=== PATIENT | female | born 1940 | race Caucasian/White ===

== ENCOUNTER → 2018-03-16 13:53 | Outpatient (CLI) | payer MEDICARE, OTHER, SELFPAY ==
--- NOTE | 2018-03-16 | DI.MG.S_ITS ---
BILATERAL DIGITAL SCREENING MAMMOGRAM 3D/2D WITH CAD: 03/16/2018 CLINICAL: Routine screening. Comparison is made to exams dated: 03/01/2016 mammogram and 02/24/2015 mammogram - [facility]. The tissue of both breasts is heterogeneously dense. This may lower the sensitivity of mammography. Current study was also evaluated with a Computer Aided Detection (CAD) system. No significant masses, calcifications, or other findings are seen in either breast. There has been no significant interval change. IMPRESSION: NEGATIVE There is no mammographic evidence of malignancy. A 1 year screening mammogram is recommended. This exam was interpreted at Station ID: [id number]. NOTE: For mammograms, a report in lay terms will be sent to the patient. Approximately 15% of breast malignancies will not be visualized mammographically. In the management of a palpable breast mass, a negative mammogram must not discourage biopsy of a clinically suspicious lesion. Electronically Signed By: Kaushal fischer/kwesi:03/16/2018 15:33:30 letter sent: Normal Exam ACR BI-RADS Category 1: Negative [id number]
== END ==
PROVIDERS: Family Provider Family Medicine; PCP Family Medicine; Visit Provider Family Medicine
DX: Z12.31 Encounter for screening mammogram for malignant neoplasm of breast (principal)
CPT/HCPCS: 77063; 77067

== ENCOUNTER 2019-05-16 13:20 | Emergency (ER) | payer MEDICARE, OTHER, SELFPAY ==
[2019-05-16 13:27] VITALS: BP 148/82; PULSE 80; RESP 16; TEMP 36.4; O2SAT 100; BMI 14.5
--- NOTE | 2019-05-16 13:38 | DI.RAD.S_ITS ---
PROCEDURE: XR HIP W PEL IF DONE LT 2V INDICATIONS: hip/groin pain with walking, osteoporosis TECHNIQUE: AP pelvis with lateral view(s) of the left hip. COMPARISON: None. FINDINGS: Bones: No fractures or dislocations. Pelvic ring appears intact. No suspicious bony lesions. Soft tissues: The visualized bowel gas pattern is normal. No suspicious soft tissue calcifications. IMPRESSION: No fracture found, no sign of subluxation. Moderate colonic constipation. Dictated by: Shahab Whiteside M.D. on 05/16/2019 at 14:12 Approved by: Shahab Whiteside M.D. on 05/16/2019 at 14:12
--- NOTE | 2019-05-16 13:44 | ED.BACK ---
HPI - Back Pain/Injury <Sonya FloresNUSRAT - Last Filed: 05/16/19 18:49> General Chief Complaint: Back Pain/Injury Stated Complaint: SEVERE PAIN IN HIPS AND LEGS Time Seen by Provider: 05/16/19 13:23 Source: patient Mode of arrival: ambulatory Limitations: no limitations History of Present Illness HPI Narrative: 79-year-old male with history of TIA, brain aneurysms, carotid dissection, presents emergency department today complaining of a gradual onset of left buttocks pain that radiates down her left leg. She describes it as a constant dull ache which is a 5/10 with intermittent episodes of sharp shooting pain 7/10. She states the pain is worse when she moves, sits, or transitions positions. She has not tried any medication for the pain as she states ?do not like to take medications ?. Denies any back or hip injuries. She denies fevers, chest pain, shortness of breath, rashes, severe headache, vision changes, abdominal pain, nausea, vomiting, or diarrhea. Patient states that she is underweight (states she weighs about 70 lb) because he has been unable to keep weight on herself since her brain aneurysms. She states that she continually snacks in eats. Her is at the bedside and confirms this. She also states she is unable to change a gown because she is allergic to polyester. Patient describes that she uses a pendulum given to her by natural to determine if she can take medications or if she has allergies to medications. Related Data Home Medications Medication Instructions Recorded Confirmed Priority Eye Vitamin 1 tab PO DAILY 05/16/19 05/16/19 aspirin 81 mg PO DAILY 05/16/19 05/16/19 hydroxyzine HCl 12.5 mg PO BID 05/16/19 05/16/19 Previous Rx's Medication Instructions Recorded lamotrigine 25 mg tablet 25 mg PO DAILY #30 tab 05/03/19 Allergies Allergy/AdvReac Type Severity Reaction Status Date / Time lamotrigine Allergy Severe SIEZURES Verified 05/16/19 13:27 aspirin [ASPIRIN] Allergy Mild ONLY Verified 05/16/19 13:27 REGULAR STRENGTH ASA divalproex sodium Allergy Mild Verified 05/16/19 13:27 [From DEPAKOTE] gabapentin [GABAPENTIN] Allergy Mild Verified 05/16/19 13:27 levetiracetam [From KEPPRA] Allergy Mild Verified 05/16/19 13:27 penicillin G [PENICILLIN G] Allergy Mild Verified 05/16/19 13:27 phenytoin [PHENYTOIN] Allergy Mild Verified 05/16/19 13:27 Sulfa (Sulfonamide Allergy Mild Verified 05/16/19 13:27 Antibiotics) [SULFA (SULFONAMIDE ANTIBIOTICS)] topiramate [TOPIRAMATE] Allergy Mild Verified 05/16/19 13:27 cat dander [CAT DANDER] Allergy Unknown ITCHY, Verified 05/16/19 13:27 THROAT SWELLS naltrexone Allergy Unknown Verified 05/16/19 14:24 primidone [PRIMIDONE] Allergy Unknown REPORTS Verified 05/16/19 13:27 SHE IS ALLERGIC, VERY DIZZY hydroxyzine AdvReac Intermediate Itching Verified 05/16/19 13:27 PARTICULAR WATER Allergy Mild tolerates Uncoded 05/16/19 13:27 only distilled water POLYSTER Allergy Mild FEELS PAIN Uncoded 05/16/19 13:27 WHEN SKIN TOUCHES Review of Systems <NUSRAT Asencio - Last Filed: 05/16/19 18:49> Review of Systems REVIEW OF SYSTEMS: GENERAL: Denies fever or chills. HENT: No head trauma. EYES: No double vision or vision loss. CARDIOVASCULAR: No chest pain or syncope. RESPIRATORY: No shortness of breath or cough. GASTROINTESTINAL: No nausea, vomiting, diarrhea, or constipation. GENITOURINARY: No flank pain or dysuria. MUSCULOSKELETAL: Complains of left hip and back pain, see HPI. INTEGUMENTARY: No rash, lesions, or pruritus. NEURO: No numbness, tingling. PSYCH: No behavior or mood changes. PFSH <NUSRAT Asencio - Last Filed: 05/16/19 18:49> Medical History Blind left eye (Chronic ~1993) Carpal tunnel syndrome (Chronic) GERD (gastroesophageal reflux disease) (Chronic) Hearing loss (Chronic) Hemorrhoid (Chronic) Osteoporosis (Chronic) Plantar warts (Chronic ~1958) Seasonal allergies (Chronic) Shingles (Chronic ~1994) Brain aneurysm (Resolved) Burst blood vessel in eye (Resolved ~2008) Chicken pox (Resolved) History of vaginal delivery (Resolved) Measles (Resolved) Mumps (Resolved) Seizure (Resolved ~2014) Stroke (Resolved ~07/2014) Surgical History Anesthesia (Resolved) History of abdominal surgery (Resolved ~1959) History of bad fall (Resolved ~2001) History of thumb surgery (Resolved ~1995) History of bilateral salpingo-oophorectomy (BSO) Family History (Updated 01/15/19 @ 20:10 by Marilu Burrell) Mother Osteoporosis Epilepsy Sister Age: 71 Brain aneurysm Father Diabetes mellitus Grandfather Tuberculosis Grandmother Tuberculosis Sister Brain aneurysm Social History Smoking Status: Former smoker Family History Mother Osteoporosis Epilepsy Sister Age: 71 Brain aneurysm Father Diabetes mellitus Grandfather Tuberculosis Grandmother Tuberculosis Sister Brain aneurysm Social History Smoking Status: Former smoker Exam <NUSRAT Asencio - Last Filed: 05/16/19 18:49> Initial Vital Signs Initial Vital Signs: Vital Signs Temperature 97.6 F 05/16/19 13:27 Pulse Rate 80 05/16/19 13:27 Respiratory Rate 16 05/16/19 13:27 Blood Pressure 148/82 H 05/16/19 13:27 Pulse Oximetry 100 05/16/19 13:27 PHYSICAL EXAMINATION: GENERAL: Well groomed, alert, and cooperative. Answers questions promptly and appropriately. Vital signs noted. HENT: Normocephalic, atraumatic. EYES: Symmetrical, sclera white, no periorbital swelling. CARDIOVASCULAR: S1 and S2 sounds normal. Regular rate and rhythm, no murmurs, clicks, or bruits. No pedal edema. RESPIRATORY: Normal respiratory rate, trachea midline, airway patent. No stridor, nasal flaring or accessory muscle use. Lungs are clear in all wade. MUSCULOSKELETAL: Tenderness to palpation over left sciatic area, slight tenderness to palpation over left groin. Positive straight leg test a legs pain in her back. No rashes or ecchymoses present over the area. Normal gait and coordination. Equal tone and mass bilaterally. No spinal tenderness or deformities. . EXTREMITIES: CMS intact. No pedal edema. SKIN: Warm, dry, soft, appropriate color for ethnicity. No lesions, rashes, or wounds. NEURO: Alert and Oriented X 3. No sensory deficits. PSYCH: Appropriate affect and mood. <Wendy Mike DO - Last Filed: 05/17/19 07:28> Initial Vital Signs Initial Vital Signs: Vital Signs Temperature 97.6 F 05/16/19 13:27 Pulse Rate 80 05/16/19 13:27 Respiratory Rate 16 05/16/19 13:27 Blood Pressure 148/82 H 05/16/19 13:27 Pulse Oximetry 100 05/16/19 13:27 Course <NUSRAT Asencio - Last Filed: 05/16/19 18:49> Orders Ordered: ED Orders 05/16/19 13:38 XR hip w pel if done LT 2V Stat Reevaluation(s) Reevaluation #1: Discussed results of x-ray with patient, she stated she does not need any medication is interested in pursuing physical therapy. Her referred her to her primary care provider to discuss if this is a good option and to request a referral if needed. Vital Signs - 8 hr 05/16/19 13:27 05/16/19 14:45 Temperature 97.6 F Pulse Rate 80 77 Respiratory Rate 16 15 Blood Pressure 148/82 H Blood Pressure [Right Arm] 160/86 H Pulse Oximetry 100 94 <Wendy Mike DO - Last Filed: 05/17/19 07:28> Orders Ordered: ED Orders 05/16/19 13:38 XR hip w pel if done LT 2V Stat Vital Signs - 8 hr 05/16/19 13:27 05/16/19 14:45 Temperature 97.6 F Pulse Rate 80 77 Respiratory Rate 16 15 Blood Pressure 148/82 H Blood Pressure [Right Arm] 160/86 H Pulse Oximetry 100 94 MDM - Back Pain/Injury <NUSRAT Asencio - Last Filed: 05/16/19 18:49> Medical Records Attestation: I reviewed the patient's medical records. Lab Data Attestation: I reviewed the patient's lab results. Imaging Data Hip XR: Radiologist's impression: [address] [address] XRay Report Signed Patient: Stefany Rider [facility]#: [id number] : 1940Acct:[id number] Age/Sex: 79 / FDate of Service: 05/16/19 Loc: ED Accession Number: [id number] Procedure: XR hip w pel if done LT 2V Ordering Provider: Sonya Flores PROCEDURE: XR HIP W PEL IF DONE LT 2V INDICATIONS: hip/groin pain with walking, osteoporosis TECHNIQUE: AP pelvis with lateral view(s) of the left hip. COMPARISON: None. FINDINGS: Bones: No fractures or dislocations. Pelvic ring appears intact. No suspicious bony lesions. Soft tissues: The visualized bowel gas pattern is normal. No suspicious soft tissue calcifications. IMPRESSION: No fracture found, no sign of subluxation. Moderate colonic constipation. Dictated by: Shahab Whiteside M.D. on 05/16/2019 at 14:12 Approved by: Shahab Whiteside M.D. on 05/16/2019 at 14:12 [facility] Narrative Medical decision making narrative: Differential includes sciatica (most likely due to presentation of pain, positive straight leg test, lack of fracture on x-ray, description of radiation of pain down her leg), fracture (less likely due to negative x-ray and patient's ability to walk on her leg), muscle spasm (slightly less likely due to lack of palpation of spasm, description of pain as sharp pain that radiates down her leg), renal or abdominal etiology (less likely due to reproducible pain with movement and palpation, lack of other systemic symptoms such as fever, nausea, vomiting, dysuria.) Discharge Plan Departure Patient Disposition: Home Clinical Impression: Sciatica Qualifiers: Laterality: left Qualified Code(s): M54.32 - Sciatica, left side Discharge Date/Time: 05/16/19 15:06 Interventions: ED Discharge Assessment Last Done: 05/16/19 15:05 Instructions: DI for Sciatica Activity Restrictions/Additional Instructions: Thank you for entrusting me with your care today. As discussed, your x-ray does not show any fractures. I believe your pain is caused from sciatic. I advised that you follow-up with your primary care provider and discuss physical therapy as an option to help with your pain. Please return to the emergency department if he develops loss of bowel or bladder control, pelvic numbness or tingling, high fevers, chest pain, shortness of breath, or syncope. Prescriptions: No Action lamotrigine 25 mg tablet 25 mg PO DAILY Qty: 30 RF: 0 aspirin 81 mg Tablet,Delayed Release (Dr/Ec) 81 mg PO DAILY RF: 0 hydroxyzine HCl 25 mg tablet 12.5 mg PO BID RF: 0 Priority Eye Vitamin 1 tab PO DAILY RF: 0 Referrals: Chester Erwin MD [Primary Care Provider] - <Wendy Mike DO - Last Filed: 05/17/19 07:28> Cosign ED Attending Cosignature Attestation: I was immediately available in the department for consultation. Documentation has been reviewed. I agree with assessment and plan.
[2019-05-16 14:45] VITALS: BP 160/86; PULSE 77; RESP 15; O2SAT 94
== END 2019-05-16 15:06 | disposition home or self-care (01) ==
PROVIDERS: Emergency Provider Nurse Practitioner; PCP Student in an Organized Health Care Education/Training Program
DX: M54.32 Sciatica, left side (principal)
CPT/HCPCS: 73502; 99282; 99283

== ENCOUNTER → 2019-06-06 14:21 | Outpatient (CLI) | payer MEDICARE, OTHER, SELFPAY ==
[2019-06-06 15:50] LABS: Add Manual Diff / Slide Review NO; Basophils Absolute Auto 0 /uL (0-100); Basophils Percent Auto 0.4 % (0-2); Eosinophils Absolute Auto 200 /uL (0-450); Eosinophils Percent Auto 2.1 % (2-4); Hematocrit 41.3 % (36-46); Hemoglobin 14.1 g/dL (12.0-16.0); Lymphocytes Absolute Auto 1200 /uL (1100-4500); Lymphocytes Percent Auto 16.7 % (25-40); Mean Corpuscular Hemoglobin 29.1 PG (26-34); Mean Corpuscular Volume 85.4 fL (80-100); Monocytes Absolute Auto 600 /uL (0-900); Monocytes Percent Auto 8.8 % (3-14); Neutrophils Absolute Auto 5200 /uL (1500-7000); Platelet Count 403 X10^3/uL (150-400); Red Blood Cell Count 4.84 X10^6/uL (4.0-5.2); Red Cell Distribution Width 14.1 % (11.6-14.8); White Blood Cell Count 7.2 X10^3/uL (4.5-11.0)
[2019-06-06 16:14] LABS: Iron 86 ug/dL (37-170)
[2019-06-06 16:16] LABS: Alanine Aminotransferase 24 IU/L (9-52); Albumin 4.6 g/dL (3.5-5.0); Albumin Globulin Ratio 1.5 (1.0-2.8); Alkaline Phosphatase 126 U/L (38-126); Aspartate Aminotransferase 28 IU/L (14-36); BUN Creatinine Ratio 32.9 (6-22); Bilirubin Total 0.4 mg/dL (0.2-1.3); Blood Urea Nitrogen 23 mg/dL (7-17); Calcium 10.5 mg/dL (8.4-10.2); Carbon Dioxide 32 mmol/L (22-32); Chloride 95 mmol/L (98-107); Estimated Glomerular Filt Rate > 60.0 mL/min (>60); Globulin 3.1 g/dL (1.7-4.1); Glucose 88 mg/dL (80-110); HEMOLYSIS < 15 (0-50); Potassium 3.7 mmol/L (3.4-5.1); Sodium 139 mmol/L (137-145); Total Protein 7.7 g/dL (6.3-8.2)
[2019-06-06 16:24] LABS: Total Iron Binding Capacity 381 ug/dL (265-497)
[2019-06-06 16:32] LABS: Free T4, Direct Thyroxine 1.02 ng/dL (0.78-2.19)
[2019-06-06 17:14] LABS: Hepatitis B Surface Antigen NEGATIVE s/c (NEGATIVE)
[2019-06-06 17:29] LABS: Hep C Virus Ab w/Reflex Quant NEGATIVE s/c (NEGATIVE)
== END ==
PROVIDERS: PCP Student in an Organized Health Care Education/Training Program; Visit Provider Physician Assistant
DX: L29.8 Other pruritus (principal)
CPT/HCPCS: 36415; 80053; 82728; 82785; 83540; 83550; 84439; 84443; 85025; 86003; 86038; 86803; 87340

== ENCOUNTER → 2019-06-14 12:08 | Outpatient (CLI) | payer MEDICARE, OTHER, SELFPAY ==
--- NOTE | 2019-06-14 12:12 | DI.CT.S_ITS ---
PROCEDURE: CT CHEST WO CON INDICATIONS: Evaluate RUL incidental nodule TECHNIQUE: Noncontrast 5 mm thick sections acquired from the pulmonary apices to the posterior costophrenic angles. 1 mm lung window, 5 mm thick coronal and sagittal and 7 mm axial MIP reformats were then acquired. For radiation dose reduction, the following was used: automated exposure control, adjustment of mA and/or kV according to patient size. COMPARISON: [facility], CT, CT ANGIO HEAD AND NECK, 06/09/2019, 16:07. FINDINGS: Image quality: Excellent. Lungs and pleura: There is severe emphysematous change, centrilobular, and within the posterior medial right upper lobe there is a malignant appearing spiculated mass which measures up to 2.2 cm AP, 1.8 cm transverse and 1.9 cm craniocaudad.. No pleural effusions or pneumothorax. Central and peripheral airways are patent and normal in caliber. Mediastinum: Heart size is normal. No pericardial effusion. No mediastinal adenopathy by size criteria. Thoracic aorta and central pulmonary arteries are normal in size. Esophagus is normal in caliber. No hiatal hernia. Bones and chest wall: No suspicious bony lesions. No vertebral body compression fractures. No axillary or supraclavicular adenopathy by size criteria. Thyroid gland is not well-seen by this noncontrast technique. Abdomen: Visualized upper abdominal solid organs and bowel loops appear normal in the absence of contrast. IMPRESSION: 1. Severe centrilobular emphysema. Long-standing smoking history is presumed. 2. Spiculated mass lesion is present within the posterior medial right upper lobe measuring up to 2.2 x 1.8 x 1.9 cm. No mediastinal or hilar adenopathy is associated. Dictated by: Shahab Whiteside M.D. on 06/14/2019 at 14:04 Approved by: Shahab Whiteside M.D. on 06/14/2019 at 14:10
== END ==
PROVIDERS: PCP Student in an Organized Health Care Education/Training Program; Visit Provider Student in an Organized Health Care Education/Training Program
DX: R91.1 Solitary pulmonary nodule (principal); J43.2 Centrilobular emphysema
CPT/HCPCS: 71250

== ENCOUNTER → 2019-06-26 09:13 | Outpatient (CLI) | payer MEDICARE, OTHER, SELFPAY ==
--- NOTE | 2019-06-26 09:16 | DI.NM.S_ITS ---
PROCEDURE: NM UPTAKE AND SCAN RADIOPHARMACEUTICAL: 370 ?Ci I-123 sodium iodide by mouth. INDICATIONS: Eval right thyroid nodule TECHNIQUE: I-123 sodium iodide was administered orally. Anterior neck images were obtained, and iodine uptake by the thyroid gland calculated using extrusion utility worker's software. COMPARISON: [facility], CT, CT ANGIO HEAD AND NECK, 06/09/2019, 16:07. [facility], CT, CT CHEST WO CON, 06/14/2019, 12:39. [facility], CT, CT CHEST W CON, 06/27/2019, 10:21. FINDINGS: Morphology: The thyroid gland has normal morphology. There is mildly increased uptake in the inferior pole of the right thyroid lobe suggesting a hot thyroid nodule. Overall, there is decreased activity subjectively in thyroid, which could be related to high iodine load from a recent radiological study with iodinated IV contrast (CT neck angiogram 06/09/19). Uptake: The 6-hour thyroid uptake is 6.8%; normal ranges are from 6-18%. The 24-hour thyroid uptake is 14.5%; normal ranges are from 10-30%. IMPRESSION: 1. Possible hot thyroid nodule in the inferior pole the right thyroid lobe. 2. Low normal 6-hour and 24-hour radioiodine uptake. 3. The exam is likely slightly compromised by high iodine load from a recent contrast enhanced radiological study. Dictated by: Aquiles Alford M.D. on 06/27/2019 at 10:03 Approved by: Aquiles Alford M.D. on 06/27/2019 at 10:16
== END ==
PROVIDERS: PCP Student in an Organized Health Care Education/Training Program; Visit Provider Student in an Organized Health Care Education/Training Program
DX: E04.1 Nontoxic single thyroid nodule (principal); R91.1 Solitary pulmonary nodule
CPT/HCPCS: 36415; 78014; 82565; A9516

== ENCOUNTER → 2019-06-26 16:13 | Outpatient (CLI) | payer MEDICARE, OTHER, SELFPAY ==
[2019-06-26 17:33] LABS: Estimated Glomerular Filt Rate > 60.0 mL/min (>60)
== END ==
PROVIDERS: PCP Student in an Organized Health Care Education/Training Program; Visit Provider Thoracic Surgery (Cardiothoracic Vascular Surgery)
DX: R91.1 Solitary pulmonary nodule (principal)
CPT/HCPCS: 36415; 82565

== ENCOUNTER → 2019-06-27 09:27 | Outpatient (CLI) | payer MEDICARE, OTHER, SELFPAY ==
--- NOTE | 2019-06-27 | DI.CT.S_ITS ---
PROCEDURE: CT CHEST W CON INDICATIONS: Solitary pulmonary nodule TECHNIQUE: After the administration of intravenous contrast, 5 mm thick sections acquired from the pulmonary apices to the posterior costophrenic angles. 1 mm axial lung, 5 mm thick coronal and sagittal reformats and 7 mm axial MIP were acquired. For radiation dose reduction, the following was used: automated exposure control, adjustment of mA and/or kV according to patient size. COMPARISON: [facility], CT, CT CHEST WO [facility], 06/14/2019, 12:39. FINDINGS: Image quality: Excellent. Lungs and pleura: Moderate to severe centrilobular emphysema. No significant short time followup interval change in the size of a spiculated mass in the right upper lobe consistent with bronchogenic carcinoma. It measures 1.8 cm. No acute air space opacities. No pleural effusions or pneumothorax. Central and peripheral airways are patent and normal in caliber. Mediastinum: Heart size is normal. No pericardial effusion. No mediastinal or hilar adenopathy by size criteria. Thoracic aorta and central pulmonary arteries are normal in size. Esophagus is normal in caliber. No hiatal hernia. Bones and chest wall: No suspicious bony lesions. No vertebral body compression fractures. No axillary or supraclavicular adenopathy by size criteria. Thyroid gland contains bilateral small nodules. Abdomen: A hyperenhancing 3.1 x 1.8 cm right lobe liver lesion likely represents a angioma. There are 4 other low density lesions in the liver which are consistent with cysts versus hemangiomata. IMPRESSION: 1. Moderate to severe centrilobular emphysema. 2. 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 3. No evidence of metastatic disease in the chest. 4. Probable 3.1 cm maximum diameter liver hemangioma. Dictated by: Wale Vargas M.D. on 06/27/2019 at 11:05 Approved by: Wale Vargas M.D. on 06/27/2019 at 11:13
== END ==
PROVIDERS: PCP Student in an Organized Health Care Education/Training Program; Visit Provider Thoracic Surgery (Cardiothoracic Vascular Surgery)
DX: R91.1 Solitary pulmonary nodule (principal); J43.2 Centrilobular emphysema
CPT/HCPCS: 71260; 87177; Q9967

== ENCOUNTER 2019-07-10 13:25 | Emergency (ER) | payer MEDICARE, OTHER, SELFPAY ==
[2019-07-10 13:25] VITALS: BP 141/81; PULSE 87; RESP 18; TEMP 36.7; O2SAT 98
--- NOTE | 2019-07-10 14:44 | ED.SKABFB ---
HPI - Skin/Abscess/Foreign Bdy General Chief complaint: Skin/Abscess/Foreign Body Stated complaint: R side under boob bandage change stitches out Time Seen by Provider: 07/10/19 13:55 Source: patient Mode of arrival: Ambulatory Limitations: no limitations History of Present Illness HPI narrative: Patient is 79-year-old female who had right upper lobe removal for cancer with Dr. Cabral at [facility]. After the operation she had some bleeding from her incision site an extra suture was placed last week. She is here for removal of the 1 suture. She has no drainage today no redness pus no swelling. MD complaint: other (Insert suture removal) Onset (ago): week(s) (1) Related Data Home Medications Medication Instructions Recorded Confirmed Priority Eye Vitamin 1 tab PO DAILY 05/16/19 05/16/19 aspirin 81 mg PO DAILY 05/16/19 05/16/19 hydroxyzine HCl 12.5 mg PO BID 05/16/19 05/16/19 metoprolol tartrate 25 mg PO DAILY 07/10/19 07/10/19 Previous Rx's Medication Instructions Recorded lamotrigine 25 mg tablet 25 mg PO DAILY #30 tab 05/03/19 Allergies Allergy/AdvReac Type Severity Reaction Status Date / Time lamotrigine Allergy Severe SIEZURES Verified 05/16/19 13:27 aspirin [ASPIRIN] Allergy Mild ONLY Verified 05/16/19 13:27 REGULAR STRENGTH ASA divalproex sodium Allergy Mild Verified 05/16/19 13:27 [From DEPAKOTE] gabapentin [GABAPENTIN] Allergy Mild Verified 05/16/19 13:27 levetiracetam [From KEPPRA] Allergy Mild Verified 05/16/19 13:27 penicillin G [PENICILLIN G] Allergy Mild Verified 05/16/19 13:27 phenytoin [PHENYTOIN] Allergy Mild Verified 05/16/19 13:27 Sulfa (Sulfonamide Allergy Mild Verified 05/16/19 13:27 Antibiotics) [SULFA (SULFONAMIDE ANTIBIOTICS)] topiramate [TOPIRAMATE] Allergy Mild Verified 05/16/19 13:27 cat dander [CAT DANDER] Allergy Unknown ITCHY, Verified 05/16/19 13:27 THROAT SWELLS naltrexone Allergy Unknown Verified 05/16/19 14:24 primidone [PRIMIDONE] Allergy Unknown REPORTS Verified 05/16/19 13:27 SHE IS ALLERGIC, VERY DIZZY hydroxyzine AdvReac Intermediate Itching Verified 05/16/19 13:27 PARTICULAR WATER Allergy Mild tolerates Uncoded 05/16/19 13:27 only distilled water POLYSTER Allergy Mild FEELS PAIN Uncoded 05/16/19 13:27 WHEN SKIN TOUCHES Review of Systems Review of Systems Narrative: GENERAL: Denies chills,fever HEENT: Denies throat pain RESPIRATORY: Denies dyspnea, cough, wheezing CARDIOVASCULAR: Denies chest pain, palpitations GASTROINTESTINAL: Denies nausea, vomiting MUSCULOSKELETAL: Denies extremity pain, injury SKIN: See HPI NEUROLOGIC: Denies weakness, dizziness, headache, numbness 8 point review of systems is negative except for those stated above and HPI [facility] Medical History (Updated 07/10/19 @ 14:49 by Wendy Mike DO) Blind left eye (Chronic ~1993) Brain aneurysm (Resolved) Burst blood vessel in eye (Resolved ~2008) Carpal tunnel syndrome (Chronic) Chicken pox (Resolved) GERD (gastroesophageal reflux disease) (Chronic) Hearing loss (Chronic) Hemorrhoid (Chronic) History of vaginal delivery (Resolved) Lung cancer (Acute) Measles (Resolved) Mumps (Resolved) Osteoporosis (Chronic) Plantar warts (Chronic ~1958) Seasonal allergies (Chronic) Seizure (Resolved ~2014) Shingles (Chronic ~1994) Stroke (Resolved ~07/2014) Surgical History Anesthesia (Resolved) History of abdominal surgery (Resolved ~1959) History of bad fall (Resolved ~2001) History of bilateral salpingo-oophorectomy (BSO) History of thumb surgery (Resolved ~1995) Family History Mother Osteoporosis Epilepsy Sister Age: 71 Brain aneurysm Father Diabetes mellitus Grandfather Tuberculosis Grandmother Tuberculosis Sister Brain aneurysm Social History Smoking Status: Former smoker Family History Mother Osteoporosis Epilepsy Sister Age: 71 Brain aneurysm Father Diabetes mellitus Grandfather Tuberculosis Grandmother Tuberculosis Sister Brain aneurysm Social History (Reviewed 07/10/19 @ 14:47 by FLORENCIO Goldberg Smoking Status: Former smoker Exam Initial Vital Signs Initial Vital Signs: Vital Signs Temperature 98.1 F 07/10/19 13:25 Pulse Rate 87 07/10/19 13:25 Respiratory Rate 18 07/10/19 13:25 Blood Pressure 141/81 H 07/10/19 13:25 Pulse Oximetry 98 07/10/19 13:25 GENERAL: Alert pleasant appears younger than stated age CARDIOVASCULAR: peripheral pulses in tact, cap refill <2 sec RESPIRATORY: No respiratory distress, speaks in full sentences without difficulty EXTREMITIES: Normal range of motion, no clubbing or edema. Neurovascularly intact NEUROLOGICAL: Cranial nerves II through XII grossly intact. Normal gait and speech. SKIN: 1 suture placed in the right breast. Incision site is closed no erythema no drainage. Course Vital Signs Vital signs: Vital Signs - 8 hr 07/10/19 13:25 Temperature 98.1 F Pulse Rate 87 Respiratory Rate 18 Blood Pressure 141/81 H Pulse Oximetry 98 MDM - Skin/Abscess/Foreign Bdy MDM Narrative Medical decision making narrative: Apparently surgeon told patient to go to any emergency department or urgent care to have the 1 stitch removed. Discharge Plan Departure Patient Disposition: Home Clinical Impression: Visit for suture removal Discharge Date/Time: 07/10/19 15:00 Instructions: DI for Suture Removal Activity Restrictions/Additional Instructions: *You have been diagnosed with suture removal *What to do: Keep area clean and dry with soap and water *Continue to take medications as directed *Follow up with your primary care provider in 2-3 days, follow-up with your surgeon as previously arranged *Return to ER if you should have redness pus swelling drainage or any new, worsening or concerning symptoms Prescriptions: No Action lamotrigine 25 mg tablet 25 mg PO DAILY Qty: 30 RF: 0 metoprolol tartrate 25 mg tablet 25 mg PO DAILY RF: 0 aspirin 81 mg Tablet,Delayed Release (Dr/Ec) 81 mg PO DAILY RF: 0 hydroxyzine HCl 25 mg tablet 12.5 mg PO BID RF: 0 Priority Eye Vitamin 1 tab PO DAILY RF: 0 Referrals: Chester Erwin MD [Primary Care Provider] - Andres Nuñez MD [Non-Staff] -
== END 2019-07-10 15:00 | disposition home or self-care (01) ==
PROVIDERS: Emergency Provider Emergency Medicine; PCP Student in an Organized Health Care Education/Training Program
DX: Z48.02 Encounter for removal of sutures (principal)
CPT/HCPCS: 99281; 99282

== ENCOUNTER 2019-08-09 11:55 | Emergency (ER) | payer MEDICARE, OTHER, SELFPAY ==
[2019-08-09 11:55] VITALS: BP 190/94; PULSE 74; RESP 18; TEMP 36.4; O2SAT 95; BMI 13.6
[2019-08-09 12:20] VITALS: BP 157/85; PULSE 82; RESP 16; O2SAT 99
[2019-08-09 12:25] VITALS: PULSE 78
--- NOTE | 2019-08-09 12:26 | PC.NURSE ---
Patient reports three months of ongoing pain in back. Pain in left lower back radiating down the left leg. No relief of pain with 500mg tylenol every 4 hrs.
--- NOTE | 2019-08-09 12:31 | DI.CT.S_ITS ---
PROCEDURE: CT LUMBAR SPINE WO CON INDICATIONS: non-traumlow back pain radiating to lower leg, hx of lung CA TECHNIQUE: Noncontrast 3 mm thick sections acquired from the T12 level to the sacrum. Sagittal and coronal reformats were constructed. For radiation dose reduction, the following was used: automated exposure control. COMPARISON: None. FINDINGS: Image quality: Excellent. Bones: There is mild dextroscoliosis of upper lumbar spine centered at L2-3 level and compensatory mild levoscoliosis of lower lumbar spine centered at L4-5 level. Diffusely increased sclerotic changes throughout L3 vertebral body and extending to left pedicle and left transverse process of L3 is noted with suggestion of a nondisplaced compression fracture involving left side of L3 vertebral body and up to 20% loss of L3 vertebral body height on the left side. Given patient's history of lung cancer. Finding is highly suggestive of metastatic disease with pathologic fracture at this level. No other compression fracture is seen. No pars defects. No other suspicious osseous lesion is noted. T12-L1: Unremarkable L1-L2: Unremarkable. L2-L3: Decreased intervertebral disc space and degenerative endplate changes are seen. Broad-based disc bulge and bilateral facet arthrosis is noted with mild central canal stenosis and left-sided neuroforaminal narrowing. L3-L4: There is decreased intervertebral disc space. Degenerative endplate changes are noted. Broad-based disc bulge and bilateral facet arthrosis is seen with mild central canal stenosis and mild bilateral neuroforaminal narrowing. L4-L5: There is grade 1 anterolisthesis of L4 on L5. Broad-based disc bulge and bilateral facet arthrosis is seen. Decreased intervertebral disc space is also noted. There is moderate central canal stenosis and bilateral neuroforaminal narrowing. L5-S1: Diffuse disc bulge and bilateral facet arthrosis is seen. Mild central canal stenosis and mild bilateral neuroforaminal narrowing is noted. Soft tissues: No retroperitoneal masses or hematomas. Visualized aorta is normal in caliber. Suggestion of moderate right pleural effusion is seen atherosclerotic calcifications are noted throughout the abdominal aorta and bilateral iliac arteries. IMPRESSION: 1. Ill-defined mixed lytic and sclerotic changes throughout L3 vertebral body extending to left posterior element of L3 with acute appearing compression deformity involving left side of L3 vertebral body highly suggestive of metastatic disease with pathologic fracture. No other suspicious bony lesion is noted. 2. Grade one anterolisthesis of L4 on L5. No gross pars defect. Mild scoliosis as above. 3. Degenerative disc bulge and bilateral facet arthrosis at L2-3 through L5-S1 levels with mild to moderate central canal stenosis and bilateral neuroforaminal narrowing as above. 4. Incidentally noted of moderate right pleural effusion. Dictated by: Kolton Garcia M.D. on 08/09/2019 at 13:07 Approved by: Kolton Garcia M.D. on 08/09/2019 at 13:17
--- NOTE | 2019-08-09 12:45 | ED.EXTPRO ---
HPI - Extremity Problem <NUSRAT Moya - Last Filed: 08/09/19 21:16> General Chief complaint: Extremity Problem,Nontraumatic Stated complaint: left side back pain from sciatica for months Time Seen by Provider: 08/09/19 11:57 Source: patient Mode of arrival: Wheelchair Limitations: no limitations History of Present Illness HPI Narrative: This is a 79-year-old female, former smoker, who presents to ED with spouse with severe right-sided low back pain radiating down to foot. Patient reports onset of low back pain is about 3 and half months ago. She reports pain is 8/10 and sharp and jabbing. Patient recently had a partial right lung resection due to lung cancer. She was evaluated in ED in May 16 with same problem and diagnosed with sciatica, and was discharged to home. Patient started physical therapy but pain is so severe she had to cancel today's appointment. Patient has been taking Tylenol 500 mg about every 3 hours at home for this pain but has not been effective. Patient denies fever/chills, nausea or vomiting, incontinence for urine or bowel movements. Patient denies urinary symptoms. Patient reports increasing pain with little movements, changing in position, prolonged sitting. Patient reports has allergies to prednisone and multiple other allergies. Patient reports occasional tingling and numbness to her groin areas. Related Data Home Medications Medication Instructions Recorded Confirmed Priority Eye Vitamin 1 tab PO DAILY 05/16/19 07/17/19 aspirin 81 mg PO DAILY 05/16/19 07/17/19 hydroxyzine HCl 12.5 mg PO BID 05/16/19 07/17/19 Previous Rx's Medication Instructions Recorded lamotrigine 25 mg tablet 25 mg PO DAILY #30 tab 05/03/19 cyclobenzaprine 5 mg PO TID PRN #14 tab 08/09/19 lidocaine 1 patch TOP DAILY #15 each 08/09/19 tramadol 50 mg PO BID PRN #10 tab 08/09/19 Allergies Allergy/AdvReac Type Severity Reaction Status Date / Time lamotrigine Allergy Severe SIEZURES Verified 08/09/19 12:08 aspirin [ASPIRIN] Allergy Mild ONLY Verified 08/09/19 12:08 REGULAR STRENGTH ASA divalproex sodium Allergy Mild Verified 08/09/19 12:08 [From DEPAKOTE] gabapentin [GABAPENTIN] Allergy Mild Verified 08/09/19 12:08 levetiracetam [From KEPPRA] Allergy Mild Verified 08/09/19 12:08 penicillin G [PENICILLIN G] Allergy Mild Verified 08/09/19 12:08 phenytoin [PHENYTOIN] Allergy Mild Verified 08/09/19 12:08 Sulfa (Sulfonamide Allergy Mild Verified 08/09/19 12:08 Antibiotics) [SULFA (SULFONAMIDE ANTIBIOTICS)] topiramate [TOPIRAMATE] Allergy Mild Verified 08/09/19 12:08 cat dander [CAT DANDER] Allergy Unknown ITCHY, Verified 08/09/19 12:08 THROAT SWELLS naltrexone Allergy Unknown Verified 08/09/19 12:08 primidone [PRIMIDONE] Allergy Unknown REPORTS Verified 08/09/19 12:08 SHE IS ALLERGIC, VERY DIZZY hydroxyzine AdvReac Intermediate Itching Verified 08/09/19 12:08 PARTICULAR WATER Allergy Mild tolerates Uncoded 07/17/19 10:19 only distilled water POLYSTER Allergy Mild FEELS PAIN Uncoded 07/17/19 10:19 WHEN SKIN TOUCHES Review of Systems <NUSRAT Moya - Last Filed: 08/09/19 21:16> Review of Systems Narrative: General: Denies fever, chills, fatigue, malaise, sweats. HEENT: Denies sinus pain, ear pain, sore throat, difficulty swallowing, dizziness. Respiratory: Denies dyspnea, cough, wheezing, hemoptysis, sputum. Cardiovascular: Denies chest pain, palpitations, orthopnea, edema. Gastrointestinal: Denies nausea, vomiting, abdominal pain, diarrhea, constipation, melena. : Denies dysuria, frequency, incontinence, hematuria, urinary retention. Musculoskeletal: See HPI Skin: Denies rash, skin lesions, or other. Neurologic: Reports occasional saddle anesthesia. Denies weakness, headache, numbness, change in speech, confusion, seizures, incoordination. Psychiatric: No concerning psychosocial issues. 12-point review of systems is negative except for those stated above. Patient History <NUSRAT Moya - Last Filed: 08/09/19 21:16> Medical History Blind left eye (Chronic ~1993) Brain aneurysm (Resolved) Burst blood vessel in eye (Resolved ~2008) Carpal tunnel syndrome (Chronic) Chicken pox (Resolved) GERD (gastroesophageal reflux disease) (Chronic) Hearing loss (Chronic) Hemorrhoid (Chronic) History of vaginal delivery (Resolved) Lung cancer (Resolved) Measles (Resolved) Mumps (Resolved) Osteoporosis (Chronic) Plantar warts (Chronic ~1958) Seasonal allergies (Chronic) Seizure (Resolved ~2014) Shingles (Chronic ~1994) Stroke (Resolved ~07/2014) Surgical History Anesthesia (Resolved) History of abdominal surgery (Resolved ~1959) History of bad fall (Resolved ~2001) History of bilateral salpingo-oophorectomy (BSO) History of thumb surgery (Resolved ~1995) Family History Mother Osteoporosis Epilepsy Sister Age: 71 Brain aneurysm Father Diabetes mellitus Grandfather Tuberculosis Grandmother Tuberculosis Sister Brain aneurysm Social History Smoking Status: Former smoker Substance Use Type: does not use Exam <NUSRAT Moya - Last Filed: 08/09/19 21:16> Narrative Exam Narrative: GEN: Alert, oriented x 3, under- nourished and appears to be medically fragile. Frequently making facial grimaces and moaning due to pain. Head: Normal cephalic, atraumatic. No scalp or temporal tenderness, palpable mass or rash. EYES: Pupils are equal, round, and reactive to light and accommodation. Extraocular muscles are intact bilaterally. There is no subconjunctival hemorrhage, exudate and sclera non-icteric. ENT: Bilateral auditory canals and tympanic membranes clear. Hearing grossly intact. Nose without bleeding, purulent discharge or deviation. Facial sinuses nontender to palpate. Mucous membrane moist, no mucosal lesion. Throat without erythema, tonsillar hypertrophy or exudate. Uvula in midline, airway patent. Neck: Trachea in midline. No JVD, non-tender without lymphadenopathy. No masses or thyroid megaly. Supple, non-tender and no meningeal signs. CARDIAC: Normal regular rate and rhythm without murmurs, gallops, or rubs. No chest wall tenderness. No peripheral edema, cyanosis or pallor. Capillary refill is less than 2 seconds. RESPIRATORY: Lungs are clear to auscultate bilaterally. No cough, wheezes, rales, or rhonchi. No stridor, respiratory distress, increase work of breathing, or accessary muscle used. ABD: Abdomen soft, nontender and non-distended. No guarding or rebound tenderness to palpate. Bowel sounds are normal in all 4 quadrants. There is no palpable masses or organomegaly. EXT: Full painless ROM of all extremities with no loss of sensation, strength, effusion or edema. SKIN: Warm, dry, normal color for patient. No erythema, lesions or rash over visible areas. NEUROLOGICAL: Alert and oriented to place, time and person. Sensation and motor function intact bilaterally. No facial droops, dysphasia. PSYCHIATRIC: Good judgement and reason, without hallucinations, abnormal affect or abnormal behaviors during the examination. Patient is not suicidal. Initial Vital Signs Initial Vital Signs: Vital Signs Temperature 97.5 F L 08/09/19 11:55 Pulse Rate 74 08/09/19 11:55 Respiratory Rate 18 08/09/19 11:55 Blood Pressure 190/94 H 08/09/19 11:55 Pulse Oximetry 95 08/09/19 11:55 Back/Spine/Pelvis Back: normal to inspection and back tenderness (Lumbar paraspinal and spine tenderness in left-sided) Thoracic/Lumbar Spine: thoracic and lumbar spine normal to inspection, pain with thoraco-lumbar ROM, paraspinal tenderness, thoraco-lumbar ROM limited, lumbar spinal tenderness and straight leg raise positive <Ang Garces DO - Last Filed: 08/12/19 07:03> Initial Vital Signs Initial Vital Signs: Vital Signs Temperature 97.5 F L 08/09/19 11:55 Pulse Rate 74 08/09/19 11:55 Respiratory Rate 18 08/09/19 11:55 Blood Pressure 190/94 H 08/09/19 11:55 Pulse Oximetry 95 08/09/19 11:55 Course <NUSRAT Moya - Last Filed: 08/09/19 21:16> Orders Ordered: Discontinued Medications Acetaminophen (Tylenol) 650 mg PO NOW ONE Stop: 08/09/19 12:26 Last Admin: 08/09/19 13:02 Dose: 650 mg Documented by: FHUDSON Cyclobenzaprine HCl (Flexeril) 5 mg PO NOW ONE Stop: 08/09/19 12:26 Last Admin: 08/09/19 13:02 Dose: 5 mg Documented by: KIRA Ibuprofen (Advil) 400 mg PO NOW ONE Stop: 08/09/19 12:26 Last Admin: 08/09/19 13:02 Dose: 400 mg Documented by: KIRA Lidocaine (Lidoderm) 1 each TOP NOW ONE Stop: 08/09/19 12:26 Last Admin: 08/09/19 13:02 Dose: 1 each Documented by: KIRA Reevaluation(s) Reevaluation #1: pain improved to 2/10 from 8-06/25 after the medications. Time: 14:00 Reevaluation #2: Pt ambulated with a walker Time: 14:40 Consultations Consultation #1: Dr. Callahan to inform the CT finding and f/u Time: 14:50 Vital Signs Vital signs: Vital Signs - 8 hr 08/09/19 16:07 Pulse Rate 81 Blood Pressure [Right Arm] 145/93 H Pulse Oximetry 100 <Ang Garces DO - Last Filed: 08/12/19 07:03> Orders Ordered: Discontinued Medications Acetaminophen (Tylenol) 650 mg PO NOW ONE Stop: 08/09/19 12:26 Last Admin: 08/09/19 13:02 Dose: 650 mg Documented by: KIRA Cyclobenzaprine HCl (Flexeril) 5 mg PO NOW ONE Stop: 08/09/19 12:26 Last Admin: 08/09/19 13:02 Dose: 5 mg Documented by: KIRA Ibuprofen (Advil) 400 mg PO NOW ONE Stop: 08/09/19 12:26 Last Admin: 08/09/19 13:02 Dose: 400 mg Documented by: KIRA Lidocaine (Lidoderm) 1 each TOP NOW ONE Stop: 08/09/19 12:26 Last Admin: 08/09/19 13:02 Dose: 1 each Documented by: KIRA Vital Signs Vital signs: Vital Signs - 8 hr 08/09/19 16:07 Pulse Rate 81 Blood Pressure [Right Arm] 145/93 H Pulse Oximetry 100 MDM - Extremity (Nontraumatic) <NUSRAT Moya - Last Filed: 08/09/19 21:16> Differential Diagnosis Differential diagnosis: Likely other (Sciatica, compression fracture, Metasized cancer to spine) Medical Records Attestation: I reviewed the patient's medical records. Imaging Data CT-Lumbar: Radiologist's impression: [address] [address] [address] Scan Report Signed Patient: Stefany Rider MMR#: [id number] : 1940Acct:[id number] Age/Sex: 79 / FDate of Service: 08/09/19 Loc: ED Accession Number: [id number] Procedure: CT lumbar spine wo con Ordering Provider: Nilson Medina PROCEDURE: CT LUMBAR SPINE WO CON INDICATIONS: non-traumlow back pain radiating to lower leg, hx of lung CA TECHNIQUE: Noncontrast 3 mm thick sections acquired from the T12 level to the sacrum. Sagittal and coronal reformats were constructed. For radiation dose reduction, the following was used: automated exposure control. COMPARISON: None. FINDINGS: Image quality: Excellent. Bones: There is mild dextroscoliosis of upper lumbar spine centered at L2-3 level and compensatory mild levoscoliosis of lower lumbar spine centered at L4-5 level. Diffusely increased sclerotic changes throughout L3 vertebral body and extending to left pedicle and left transverse process of L3 is noted with suggestion of a nondisplaced compression fracture involving left side of L3 vertebral body and up to 20% loss of L3 vertebral body height on the left side. Given patient's history of lung cancer. Finding is highly suggestive of metastatic disease with pathologic fracture at this level. No other compression fracture is seen. No pars defects. No other suspicious osseous lesion is noted. T12-L1: Unremarkable L1-L2: Unremarkable. L2-L3: Decreased intervertebral disc space and degenerative endplate changes are seen. Broad-based disc bulge and bilateral facet arthrosis is noted with mild central canal stenosis and left-sided neuroforaminal narrowing. L3-L4: There is decreased intervertebral disc space. Degenerative endplate changes are noted. Broad-based disc bulge and bilateral facet arthrosis is seen with mild central canal stenosis and mild bilateral neuroforaminal narrowing. L4-L5: There is grade 1 anterolisthesis of L4 on L5. Broad-based disc bulge and bilateral facet arthrosis is seen. Decreased intervertebral disc space is also noted. There is moderate central canal stenosis and bilateral neuroforaminal narrowing. L5-S1: Diffuse disc bulge and bilateral facet arthrosis is seen. Mild central canal stenosis and mild bilateral neuroforaminal narrowing is noted. Soft tissues: No retroperitoneal masses or hematomas. Visualized aorta is normal in caliber. Suggestion of moderate right pleural effusion is seen atherosclerotic calcifications are noted throughout the abdominal aorta and bilateral iliac arteries. IMPRESSION: 1. Ill-defined mixed lytic and sclerotic changes throughout L3 vertebral body extending to left posterior element of L3 with acute appearing compression deformity involving left side of L3 vertebral body highly suggestive of metastatic disease with pathologic fracture. No other suspicious bony lesion is noted. 2. Grade one anterolisthesis of L4 on L5. No gross pars defect. Mild scoliosis as above. 3. Degenerative disc bulge and bilateral facet arthrosis at L2-3 through L5-S1 levels with mild to moderate central canal stenosis and bilateral neuroforaminal narrowing as above. 4. Incidentally noted of moderate right pleural effusion. Dictated by: Kolton Garcia M.D. on 08/09/2019 at 13:07 Approved by: Kolton Garcia M.D. on 08/09/2019 at 13:17 [facility] Narrative Medical decision making narrative: This is a 79-year-old female who is medically fragile appearing presents to ED with left-sided low back pain which radiates down to her foot for last 3.5 months. She has history of lung cancer and had right upper lobe lobectomy done about a month ago and has been recuperating well. Patient was seen about 2.5 months ago in ED with the same chief complain and had x-ray done with negative findings and discharged with sciatica. Patient has been taking Tylenol 500 mg about every 3 hours at home with poor pain control. Patient started seeing physical therapist but she had to cancel the appointment today due to significant pain with occasional saddle anesthesia. Lumbar CT shows L3 left-sided compression fracture which is highly suggestive of metastatic disease and degenerative disc bulge and central canal stenosis in L2-3 and L5-S1. Incidental finding of moderate right pleural effusion noted as well. Patient's pain has been well managed with mixture of multiple medications while in ED. Patient was able to ambulate with a walker in the ED. However, with changing in positions, patient had some recurring pain which is subsided during rest. Patient was very apprehensive taking medications for pain in ED other than Tylenol. Dr. Callahan at [facility] oncologist was contacted over the phone and informed patient's back pain and her history of lung cancer. He thinks this is not likely due to med test sized cancer to bone due to patient probably had passed scanned done prior to lung surgery. However, patient is likely need to have biopsy. Currently we do not have patient's PET scan result prior the Lung lobectomy. I informed that since patient's pain has been managed adequately that is planning to discharge patient to home and to follow up with Dr. Callahan on Monday as scheduled as the initial appointment. He agrees with the plan. Return precautions were discussed with patient and spouse. They both agrees with the treatment plan and all questions were answered. Patient discharged to home with medications such as Flexeril, lidocaine patch, Tramadol and to continue with [id number] Tylenol and Motrin as needed. Narcotic and muscle relaxant medication precautions were discussed with the patient. Discharge Plan Departure Patient Disposition: Home Clinical Impression: Bulging lumbar disc Compression fracture of third lumbar vertebra Qualifiers: Encounter type: initial encounter Qualified Code(s): S32.030A - Wedge compression fracture of third lumbar vertebra, initial encounter for closed fracture Discharge Date/Time: 08/09/19 16:13 Instructions: Vertebral Compression Fracture Activity Restrictions/Additional Instructions: You have been diagnosed with [low back pain. CT test shows compression fracture in L3 and d degenerative disc bulge from L2-S1 with a mild to moderate central canal stenosis. Also it showed incidental moderate right pleural effusion]. What to do: *Take your medications as directed. Cyclobenzaprine is muscle relaxant and trauma dull is pain medication, these medications may cause drowsiness. Please be careful with her balance, do not drive, do not take alcohol, or operate heavy equipments. Take tramadol for severe pain as needed. You also can take Tylenol 500 mg every 4-6 hours and ibuprofen 400 mg 4 times a day. Lidocaine patch stays on for 12 hours and off for 12 hours. You should remove it at midnight today. *Follow up with your primary care provider in 2-3 days, call for an appointment. You may need a referral to orthopedic/spine surgeon. Please keep your appointment with oncologist Dr. Pritchard on Monday. I spoke with Dr. Pritchard over the phone today and is expecting to see you on Monday. Let them know you were seen in the ED and that we asked you to be seen in follow up. *Return to ED if you have any new, worsening, or concerning symptoms, such as [worsening pain, weakness to her legs, chest pain, breathing difficulty, increasing tingling and numbness to legs]. Prescriptions: New lidocaine 5 % adhesive patch,medicated 1 patch TOP DAILY Qty: 15 RF: 0 tramadol 50 mg tablet 50 mg PO BID PRN (Reason: pain) Qty: 10 RF: 0 cyclobenzaprine 5 mg tablet 5 mg PO TID PRN (Reason: muscle spasm) Qty: 14 RF: 0 No Action lamotrigine 25 mg tablet 25 mg PO DAILY Qty: 30 RF: 0 aspirin 81 mg Tablet,Delayed Release (Dr/Ec) 81 mg PO DAILY RF: 0 hydroxyzine HCl 25 mg tablet 12.5 mg PO BID RF: 0 Priority Eye Vitamin 1 tab PO DAILY RF: 0 Referrals: Chester Erwin MD [Primary Care Provider] - Dino Callahan MD [Physician] - <Ang Garces DO - Last Filed: 08/12/19 07:03> Sign Out Provider Sign Out Attestation: I was available for consultation during this patient's emergency department visit. This chart is signed by myself for administrative purposes only. I did not have direct contact with this patient during this visit. They were seen independently by the APC.
[2019-08-09] MEDS: CYCLOBENZAPRINE 5 MG TABLET PO (13:02)
[2019-08-09] MEDS: IBUPROFEN 400 MG TABLET PO (13:02)
[2019-08-09] MEDS: LIDOCAINE PATCH 1 EACH ADH..PATCH TOP (13:02)
[2019-08-09] MEDS: ACETAMINOPHEN 325 MG TABLET 650 MG PO (13:02)
--- NOTE | 2019-08-09 14:40 | PC.NURSE ---
Patient tolerated ambulation with walker. Severe pain after walking when patient attempted to sit in wheelchair. Helped back to bed.
[2019-08-09 16:07] VITALS: BP 145/93; PULSE 81; O2SAT 100
== END 2019-08-09 16:13 | disposition home or self-care (01) ==
PROVIDERS: Emergency Provider Nurse Practitioner Family; PCP Student in an Organized Health Care Education/Training Program
DX: M51.26 Other intervertebral disc displacement, lumbar region (principal); S32.030A Wedge compression fracture of third lumbar vertebra, initial encounter for closed fracture
CPT/HCPCS: 72131; 99282; 99284

== ENCOUNTER 2020-05-24 01:19 | Inpatient (IN) | payer MEDICARE, OTHER, SELFPAY ==
[2020-05-24] VITALS (34 sets, daily range): BP systolic 138–233; BP diastolic 71–114; PULSE 78–116; RESP 12–35; TEMP 36.4–37.7; O2SAT 87–98; BMI 17.4
--- NOTE | 2020-05-24 01:26 | ED_ITS ---
HPI - Abdominal Pain General Chief Complaint: Abdominal Pain Stated Complaint: Abd pain an nausea Time Seen by Provider: 05/24/20 01:20 Source: patient and EMS Mode of arrival: EMS Limitations: altered mental status History of Present Illness HPI narrative: 80F former smoker with history of lung cancer on chemotherapy, cerebral aneurysm, and TIA presents by EMS for evaluation of generalized pain and frequent N/V today. She is 4 days removed from her most recent round of oral chemo, as directed by oncology at [facility]. She frequently has episodes of N/V a few days out from chemo, but this is significantly worse than normal. 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 She is still very sleepy on arrival and contributes little to the story. arrives soon after arrival, says she has high blood pressure but is allergic to every BP med except the one her talent acquisition relationship manager gives her, but doesn't know what it is. He states her last hospitalization was when she had her port placed at [facility] sometime last year. Related Data Home Medications Medication Instructions Recorded Confirmed Priority Eye Vitamin 1 tab PO DAILY 05/16/19 07/17/19 aspirin 81 mg PO DAILY 05/16/19 07/17/19 hydroxyzine HCl 12.5 mg PO BID 05/16/19 07/17/19 duloxetine 30 mg capsule,delayed 30 mg PO DAILY 04/10/20 release aspirin 81 mg PO DAILY 05/24/20 05/24/20 hydrochlorothiazide 12.5 mg PO BID 05/24/20 05/24/20 potassium chloride 05/24/20 Previous Rx's Medication Instructions Recorded lamotrigine 25 mg tablet 25 mg PO DAILY #30 tab 05/03/19 cyclobenzaprine 5 mg PO TID PRN #14 tab 08/09/19 lidocaine 1 patch TOP DAILY #15 each 08/09/19 tramadol 50 mg PO BID PRN #10 tab 08/09/19 Allergies Allergy/AdvReac Type Severity Reaction Status Date / Time lamotrigine Allergy Severe SIEZURES Verified 08/09/19 12:08 aspirin [ASPIRIN] Allergy Mild ONLY Verified 08/09/19 12:08 REGULAR STRENGTH ASA divalproex sodium Allergy Mild Verified 08/09/19 12:08 [From DEPAKOTE] gabapentin [GABAPENTIN] Allergy Mild Verified 08/09/19 12:08 levetiracetam [From KEPPRA] Allergy Mild Verified 08/09/19 12:08 penicillin G [PENICILLIN G] Allergy Mild Verified 08/09/19 12:08 phenytoin [PHENYTOIN] Allergy Mild Verified 08/09/19 12:08 Sulfa (Sulfonamide Allergy Mild Verified 08/09/19 12:08 Antibiotics) [SULFA (SULFONAMIDE ANTIBIOTICS)] topiramate [TOPIRAMATE] Allergy Mild Verified 08/09/19 12:08 cat dander [CAT DANDER] Allergy Unknown ITCHY, Verified 08/09/19 12:08 THROAT SWELLS naltrexone Allergy Unknown Verified 08/09/19 12:08 primidone [PRIMIDONE] Allergy Unknown REPORTS Verified 08/09/19 12:08 SHE IS ALLERGIC, VERY DIZZY hydroxyzine AdvReac Intermediate Itching Verified 08/09/19 12:08 PARTICULAR WATER Allergy Mild tolerates Uncoded 07/17/19 10:19 only distilled water POLYSTER Allergy Mild FEELS PAIN Uncoded 07/17/19 10:19 WHEN SKIN TOUCHES Review of Systems Review of Systems ROS Unobtainable: Unobtainable due to mental status/LOC Patient History Medical History Blind left eye (Chronic ~1993) Brain aneurysm (Resolved) Burst blood vessel in eye (Resolved ~2008) Carpal tunnel syndrome (Chronic) Chicken pox (Resolved) GERD (gastroesophageal reflux disease) (Chronic) Hearing loss (Chronic) Hemorrhoid (Chronic) History of vaginal delivery (Resolved) Lung cancer (Resolved) Measles (Resolved) Mumps (Resolved) Osteoporosis (Chronic) Plantar warts (Chronic ~1958) Seasonal allergies (Chronic) Seizure (Resolved ~2014) Shingles (Chronic ~1994) Stroke (Resolved ~07/2014) Surgical History Anesthesia (Resolved) History of abdominal surgery (Resolved ~1959) History of bad fall (Resolved ~2001) History of bilateral salpingo-oophorectomy (BSO) History of thumb surgery (Resolved ~1995) Family History Mother Osteoporosis Epilepsy Sister Age: 72 Brain aneurysm Father Diabetes mellitus Grandfather Tuberculosis Grandmother Tuberculosis Sister Brain aneurysm Social History Smoking Status: Former smoker Smoking Status: Former smoker Substance Use Type: does not use Exam Narrative Exam Narrative: GENERAL: [80] year old patient appears stated age. Very thin, temporal wasting, chronically ill, holding an emesis bag, confused and sluggish to respond HEAD: Atraumatic. Normocephalic. EYES: Pupils pinpoint reactive. Extraocular motions intact. No scleral icterus. No injection or drainage. ENT: Nose without bleeding, purulent drainage. Throat without erythema, tonsillar hypertrophy or exudate. Airway patent. NECK: Trachea midline. Non tender CARDIOVASCULAR: Regular rate and rhythm without murmurs, gallops, or rubs. RESPIRATORY: Decreased breath sounds bilaterally with prolonged expiratory phase, no obvious wheals, rales, rhonchi GASTROINTESTINAL: Abdomen firm, severely tender, generalized guarding, decreased sounds EXTREMITIES: No edema or joint tenderness. BACK: Nontender without deformity or crepitance. No flank tenderness. NEURO: Confused, slow to respond, no focal findings SKIN: No rash or erythema of visible areas Initial Vital Signs Initial Vital Signs: Vital Signs Temperature 99.8 F H 05/24/20 01:28 Pulse Rate 101 H 05/24/20 01:28 Respiratory Rate 12 05/24/20 01:28 Blood Pressure 233/114 H 05/24/20 01:28 Pulse Oximetry 96 05/24/20 01:28 Course Course Course Narrative: patient with low grade fever and tachycardia 4 days removed from chemo does not meet severe sepsis criteria as she does not meet SIRS c riteria, however, it is recognized that she may not necessarily have strong WBC count given recent chemo so blood cultures ordered before ABX, lactate ordered, fluids of 1,500mL bolus exceeds requirement of 30mL/kg. CT head ordered given her hx of HTN, headache, and confusion. CT of chest/abd/pelvis ordered to look for possible source of infection and pain. Dr. Edwards called and he will come see patient. I called her back in and there has been extensive discussion regarding the severity of her illness and today's diagnosis. and son both state she would NOT want such an invol sherice surgery. When Lung CA was diagnosed she was given a 1 year to survive at most and we are at 11+ months. Decision made to admit with comfort as goal. Orders Ordered: ED Orders 05/24/20 01:30 Complete Blood Count AUTO DIFF Stat Comprehensive Metabolic Panel Stat D Dimer Stat Ferritin Stat Lactate (Lactic Acid) Stat Lactate Dehydrogenase Stat Lipase Stat NT-proBNP (BNP-Adult 18+) Stat Procalcitonin Stat Prothrombin Time INR Stat Troponin & CK Cardiac Panel Stat EKG-12 Lead Stat 05/24/20 01:32 Urinalysis and Microscopic Stat 05/24/20 01:45 Blood Culture Stat Respiratory Panel (Film Array) Stat 05/24/20 01:58 CT chest abd pel w con Stat CT head/brain wo con Stat Acetaminophen (Tylenol) 650 mg PO Q4HR PRN PRN Reason: Fever/Mild Pain (1-3) Artificial Tears (Artificial Tears) 1 drops EYE-BOTH Q2HR PRN PRN Reason: Dry Eye(s) Cyclobenzaprine HCl (Flexeril) 5 mg PO TID PRN PRN Reason: muscle spasm Diphenhydramine HCl (Benadryl) 25 mg IV Q4HR PRN PRN Reason: Itching Duloxetine HCl (Cymbalta) 30 mg PO DAILY SUSAN Heparin Sodium (Porcine) (Heparin Flush (Port)) 500 unit IV PRN PRN PRN Reason: Flush Last Admin: 05/24/20 05:50 Dose: 500 unit Documented by: BECKY Sodium Chloride (Normal Saline 0.45%) 1,000 mls @ 100 mls/hr IV CONT SUSAN Lamotrigine (Lamictal) 25 mg PO DAILY SUSAN Lidocaine (Lidoderm) 1 each TOP DAILY SUSAN Lorazepam (Ativan) 1 mg IV Q4HR SUSAN Morphine Sulfate (Morphine) 2 mg IV Q4HR PRN PRN Reason: Pain, Moderate (4-6) Naloxone HCl (Narcan) 0.2 mg IV Q2MIN PRN PRN Reason: Opiate Reversal Ondansetron HCl (Zofran) 4 mg IV Q4HR PRN PRN Reason: Nausea And Vomiting Last Admin: 05/24/20 01:51 Dose: 4 mg Documented by: BECKY Ondansetron HCl (Zofran) 4 mg IV Q8HR PRN PRN Reason: Nausea And Vomiting Discontinued Medications Sodium Chloride (Normal Saline 0.9%) 1,000 mls @ 1,000 mls/hr IV BOLUS ONE Stop: 05/24/20 02:30 Last Infusion: 05/24/20 03:01 Dose: 0 mls/hr Documented by: Admin: 05/24/20 01:51 Dose: 1,000 mls/hr Documented by: BECKY Sodium Chloride (Normal Saline 0.9%) 500 mls @ 1,000 mls/hr IV BOLUS ONE Stop: 05/24/20 02:29 Last Infusion: 05/24/20 03:57 Dose: 0 mls/hr Documented by: Admin: 05/24/20 03:00 Dose: 1,000 mls/hr Documented by: DENISE Levofloxacin (Levaquin) 750 mg in 150 mls @ 100 mls/hr IV NOW ONE Stop: 05/24/20 03:29 Last Infusion: 05/24/20 03:57 Dose: 0 mls/hr Documented by: Admin: 05/24/20 02:10 Dose: 100 mls/hr Documented by: DENISE Labetalol HCl (Trandate) 10 mg IV NOW ONE Stop: 05/24/20 01:38 Last Admin: 05/24/20 04:43 Dose: Not Given Documented by: DENISE Pantoprazole Sodium (Protonix) 40 mg IV NOW ONE Stop: 05/24/20 01:32 Last Admin: 05/24/20 01:51 Dose: 40 mg Documented by: BECKY Reevaluation(s) Reevaluation #1: patient now developing SOB again, SpO2 in the mid to upper 80s, put back on nasal cannula Time: 02:59 Vital Signs Vital signs: Vital Signs - 8 hr 05/24/20 01:28 05/24/20 01:35 05/24/20 01:38 Temperature 99.8 F H Pulse Rate 101 H 88 87 Respiratory Rate 12 17 17 Blood Pressure 233/114 H 200/88 H Pulse Oximetry 96 94 93 05/24/20 01:50 05/24/20 02:00 05/24/20 02:10 Temperature Pulse Rate 85 84 84 Respiratory Rate 18 16 17 Blood Pressure 206/98 H 199/94 H 183/85 H Pulse Oximetry 95 95 96 05/24/20 02:20 05/24/20 02:30 05/24/20 02:46 Temperature Pulse Rate 78 87 97 H Respiratory Rate 15 19 Blood Pressure 164/79 H Pulse Oximetry 96 95 05/24/20 02:47 05/24/20 02:50 05/24/20 03:00 Temperature Pulse Rate 97 H 106 H 116 H Respiratory Rate 21 35 H 31 H Blood Pressure 186/88 H 181/91 H 179/91 H Pulse Oximetry 88 L 90 L 90 L 05/24/20 03:10 05/24/20 03:20 05/24/20 03:30 Temperature Pulse Rate 91 H 92 H 106 H Respiratory Rate 19 19 27 H Blood Pressure 176/84 H 167/84 H 166/96 H Pulse Oximetry 96 97 87 L 05/24/20 03:40 05/24/20 03:50 05/24/20 04:00 Temperature Pulse Rate 91 H 97 H 89 Respiratory Rate 23 22 21 Blood Pressure 158/79 H 171/91 H 167/82 H Pulse Oximetry 90 L 91 05/24/20 04:10 05/24/20 04:20 05/24/20 04:30 Temperature Pulse Rate 91 H 86 92 H Respiratory Rate 23 19 19 Blood Pressure 159/81 H 163/82 H 153/77 H Pulse Oximetry 92 92 93 05/24/20 04:40 05/24/20 04:50 05/24/20 05:00 Temperature Pulse Rate 92 H 88 86 Respiratory Rate 21 20 20 Blood Pressure 159/80 H 156/79 H 156/78 H Pulse Oximetry 92 92 92 05/24/20 05:10 05/24/20 05:20 05/24/20 05:30 Temperature Pulse Rate 103 H 99 H 97 H Respiratory Rate 29 H 20 21 Blood Pressure 162/88 H 148/73 H 145/71 H Pulse Oximetry 92 93 91 05/24/20 05:40 Temperature Pulse Rate 93 H Respiratory Rate 23 Blood Pressure 152/74 H Pulse Oximetry 92 MDM - Abdominal Pain Lab Data Result diagrams: 05/24/20 01:30 05/24/20 01:30 Labs: Lab Results 05/24/20 05/24/20 05/24/20 Range/Units 01:30 01:30 01:30 WBC 5.9 (4.5-11.0) X10^3/uL RBC 4.36 (4.0-5.2) X10^6/uL Hgb 12.5 (12.0-16.0) g/dL Hct 37.5 (36-46) % MCV 85.9 (80-100) fL MCH 28.7 (26-34) PG MCHC 33.4 (30-36) % RDW 15.1 H (11.6-14.8) % Plt Count 275 (150-400) X10^3/uL Neut % (Auto) 78.5 H (50-75) % Lymph % (Auto) 12.9 L (25-40) % Dewey % (Auto) 8.3 (3-14) % Eos % (Auto) 0.1 L (2-4) % Baso % (Auto) 0.2 (0-2) % Neut # (Auto) 4600 (3895-4321) /uL Lymph # (Auto) 800 L (6119-1465) /uL Dewey # (Auto) 500 (0-900) /uL Eos # (Auto) 0 (0-450) /uL Baso # (Auto) 0 (0-100) /uL PT (10.1-12.7) SECONDS INR (0.9-1.3) D-Dimer 352 H (<230) ng/mL Sodium (137-145) mmol/L Potassium (3.4-5.1) mmol/L Chloride (98-107) mmol/L Carbon Dioxide (22-32) mmol/L BUN (7-17) mg/dL Creatinine (0.52-1.04) mg/dL Estimated GFR (>60) mL/min BUN/Creatinine Ratio (6-22) Glucose (80-110) mg/dL Lactate (0.7-2.1) mmol/L Calcium (8.4-10.2) mg/dL Ferritin 160 (11-264) ng/mL Total Bilirubin (0.2-1.3) mg/dL AST (14-36) IU/L ALT (<35) IU/L Alkaline Phosphatase (38-126) U/L Lactate Dehydrogenase 486 (313-618) U/L Total Creatine Kinase (30-135) U/L CK-MB (CK-2) CK-MB (CK-2) Rel Index Troponin I (0.01-0.034) ng/mL NT-Pro-B Natriuret Pep (<450) pg/mL Total Protein (6.3-8.2) g/dL Albumin (3.5-5.0) g/dL Globulin (1.7-4.1) g/dL Albumin/Globulin Ratio (1.0-2.8) Lipase (23-300) U/L Procalcitonin (<0.5) ng/mL Chlamy pneumoniae PCR (Not Detect) Adenovirus (PCR) (Not Detect) B.parapertussis DNA PCR (Not Detect) Coronavirus OC43 (PCR) (Not Detect) Coronavirus HKU1 (PCR) (Not Detect) Coronavirus 229E (PCR) (Not Detect) COVID-19 PCR (Negative) Coronavirus NL63 (PCR) (Not Detect) Human Metapneumovir PCR (Not Detect) Influenza Type A (PCR) (Not Detect) Influenza Type B (PCR) (Not Detect) M. pneumoniae (PCR) (Not Detect) Parainfluenza 1 (PCR) (Not Detect) Parainfluenza 2 (PCR) (Not Detect) Parainfluenza 3 (PCR) (Not Detect) Parainfluenza 4 (PCR) (Not Detect) RSV (PCR) (Not Detect) Entero/Rhino (PCR) (Not Detect) 05/24/20 05/24/20 05/24/20 Range/Units 01:30 01:30 01:30 WBC (4.5-11.0) X10^3/uL RBC (4.0-5.2) X10^6/uL Hgb (12.0-16.0) g/dL Hct (36-46) % MCV (80-100) fL MCH (26-34) PG MCHC (30-36) % RDW (11.6-14.8) % Plt Count (150-400) X10^3/uL Neut % (Auto) (50-75) % Lymph % (Auto) (25-40) % Dewey % (Auto) (3-14) % Eos % (Auto) (2-4) % Baso % (Auto) (0-2) % Neut # (Auto) (4491-2021) /uL Lymph # (Auto) (7175-9200) /uL Dewey # (Auto) (0-900) /uL Eos # (Auto) (0-450) /uL Baso # (Auto) (0-100) /uL PT 10.5 (10.1-12.7) SECONDS INR 0.9 (0.9-1.3) D-Dimer (<230) ng/mL Sodium 132 L (137-145) mmol/L Potassium 3.5 (3.4-5.1) mmol/L Chloride 94 L (98-107) mmol/L Carbon Dioxide 31 (22-32) mmol/L BUN 37 H (7-17) mg/dL Creatinine 0.62 (0.52-1.04) mg/dL Estimated GFR > 60.0 (>60) mL/min BUN/Creatinine Ratio 59.7 H (6-22) Glucose 170 H (80-110) mg/dL Lactate (0.7-2.1) mmol/L Calcium 9.3 (8.4-10.2) mg/dL Ferritin (11-264) ng/mL Total Bilirubin 0.6 (0.2-1.3) mg/dL AST 39 H (14-36) IU/L ALT 38 H (<35) IU/L Alkaline Phosphatase 68 (38-126) U/L Lactate Dehydrogenase (313-618) U/L Total Creatine Kinase 25 L (30-135) U/L CK-MB (CK-2) TNP CK-MB (CK-2) Rel Index TNP Troponin I < 0.012 (0.01-0.034) ng/mL NT-Pro-B Natriuret Pep 449 (<450) pg/mL Total Protein 6.3 (6.3-8.2) g/dL Albumin 3.7 (3.5-5.0) g/dL Globulin 2.6 (1.7-4.1) g/dL Albumin/Globulin Ratio 1.4 (1.0-2.8) Lipase 27 (23-300) U/L Procalcitonin < 0.05 (<0.5) ng/mL Chlamy pneumoniae PCR (Not Detect) Adenovirus (PCR) (Not Detect) B.parapertussis DNA PCR (Not Detect) Coronavirus OC43 (PCR) (Not Detect) Coronavirus HKU1 (PCR) (Not Detect) Coronavirus 229E (PCR) (Not Detect) COVID-19 PCR (Negative) Coronavirus NL63 (PCR) (Not Detect) Human Metapneumovir PCR (Not Detect) Influenza Type A (PCR) (Not Detect) Influenza Type B (PCR) (Not Detect) M. pneumoniae (PCR) (Not Detect) Parainfluenza 1 (PCR) (Not Detect) Parainfluenza 2 (PCR) (Not Detect) Parainfluenza 3 (PCR) (Not Detect) Parainfluenza 4 (PCR) (Not Detect) RSV (PCR) (Not Detect) Entero/Rhino (PCR) (Not Detect) 05/24/20 05/24/20 05/24/20 Range/Units 01:30 01:45 01:50 WBC (4.5-11.0) X10^3/uL RBC (4.0-5.2) X10^6/uL Hgb (12.0-16.0) g/dL Hct (36-46) % MCV (80-100) fL MCH (26-34) PG MCHC (30-36) % RDW (11.6-14.8) % Plt Count (150-400) X10^3/uL Neut % (Auto) (50-75) % Lymph % (Auto) (25-40) % Dewey % (Auto) (3-14) % Eos % (Auto) (2-4) % Baso % (Auto) (0-2) % Neut # (Auto) (3361-7124) /uL Lymph # (Auto) (1909-5839) /uL Dewey # (Auto) (0-900) /uL Eos # (Auto) (0-450) /uL Baso # (Auto) (0-100) /uL PT (10.1-12.7) SECONDS INR (0.9-1.3) D-Dimer (<230) ng/mL Sodium (137-145) mmol/L Potassium (3.4-5.1) mmol/L Chloride (98-107) mmol/L Carbon Dioxide (22-32) mmol/L BUN (7-17) mg/dL Creatinine (0.52-1.04) mg/dL Estimated GFR (>60) mL/min BUN/Creatinine Ratio (6-22) Glucose (80-110) mg/dL Lactate 3.0 H (0.7-2.1) mmol/L Calcium (8.4-10.2) mg/dL Ferritin (11-264) ng/mL Total Bilirubin (0.2-1.3) mg/dL AST (14-36) IU/L ALT (<35) IU/L Alkaline Phosphatase (38-126) U/L Lactate Dehydrogenase (313-618) U/L Total Creatine Kinase (30-135) U/L CK-MB (CK-2) CK-MB (CK-2) Rel Index Troponin I (0.01-0.034) ng/mL NT-Pro-B Natriuret Pep (<450) pg/mL Total Protein (6.3-8.2) g/dL Albumin (3.5-5.0) g/dL Globulin (1.7-4.1) g/dL Albumin/Globulin Ratio (1.0-2.8) Lipase (23-300) U/L Procalcitonin (<0.5) ng/mL Chlamy pneumoniae PCR Not detected (Not Detect) Adenovirus (PCR) Not detected (Not Detect) B.parapertussis DNA PCR Not detected (Not Detect) Coronavirus OC43 (PCR) Not detected (Not Detect) Coronavirus HKU1 (PCR) Not detected (Not Detect) Coronavirus 229E (PCR) Not detected (Not Detect) COVID-19 PCR Negative (Negative) Coronavirus NL63 (PCR) Not detected (Not Detect) Human Metapneumovir PCR Not detected (Not Detect) Influenza Type A (PCR) Not detected (Not Detect) Influenza Type B (PCR) Not detected (Not Detect) M. pneumoniae (PCR) Not detected (Not Detect) Parainfluenza 1 (PCR) Not detected (Not Detect) Parainfluenza 2 (PCR) Not detected (Not Detect) Parainfluenza 3 (PCR) Not detected (Not Detect) Parainfluenza 4 (PCR) Not detected (Not Detect) RSV (PCR) Not detected (Not Detect) Entero/Rhino (PCR) Not detected (Not Detect) 05/24/20 Range/Units 04:13 WBC (4.5-11.0) X10^3/uL RBC (4.0-5.2) X10^6/uL Hgb (12.0-16.0) g/dL Hct (36-46) % MCV (80-100) fL MCH (26-34) PG MCHC (30-36) % RDW (11.6-14.8) % Plt Count (150-400) X10^3/uL Neut % (Auto) (50-75) % Lymph % (Auto) (25-40) % Dewey % (Auto) (3-14) % Eos % (Auto) (2-4) % Baso % (Auto) (0-2) % Neut # (Auto) (3500-5355) /uL Lymph # (Auto) (4214-7506) /uL Dewey # (Auto) (0-900) /uL Eos # (Auto) (0-450) /uL Baso # (Auto) (0-100) /uL PT (10.1-12.7) SECONDS INR (0.9-1.3) D-Dimer (<230) ng/mL Sodium (137-145) mmol/L Potassium (3.4-5.1) mmol/L Chloride (98-107) mmol/L Carbon Dioxide (22-32) mmol/L BUN (7-17) mg/dL Creatinine (0.52-1.04) mg/dL Estimated GFR (>60) mL/min BUN/Creatinine Ratio (6-22) Glucose (80-110) mg/dL Lactate 3.3 H (0.7-2.1) mmol/L Calcium (8.4-10.2) mg/dL Ferritin (11-264) ng/mL Total Bilirubin (0.2-1.3) mg/dL AST (14-36) IU/L ALT (<35) IU/L Alkaline Phosphatase (38-126) U/L Lactate Dehydrogenase (313-618) U/L Total Creatine Kinase (30-135) U/L CK-MB (CK-2) CK-MB (CK-2) Rel Index Troponin I (0.01-0.034) ng/mL NT-Pro-B Natriuret Pep (<450) pg/mL Total Protein (6.3-8.2) g/dL Albumin (3.5-5.0) g/dL Globulin (1.7-4.1) g/dL Albumin/Globulin Ratio (1.0-2.8) Lipase (23-300) U/L Procalcitonin (<0.5) ng/mL Chlamy pneumoniae PCR (Not Detect) Adenovirus (PCR) (Not Detect) B.parapertussis DNA PCR (Not Detect) Coronavirus OC43 (PCR) (Not Detect) Coronavirus HKU1 (PCR) (Not Detect) Coronavirus 229E (PCR) (Not Detect) COVID-19 PCR (Negative) Coronavirus NL63 (PCR) (Not Detect) Human Metapneumovir PCR (Not Detect) Influenza Type A (PCR) (Not Detect) Influenza Type B (PCR) (Not Detect) M. pneumoniae (PCR) (Not Detect) Parainfluenza 1 (PCR) (Not Detect) Parainfluenza 2 (PCR) (Not Detect) Parainfluenza 3 (PCR) (Not Detect) Parainfluenza 4 (PCR) (Not Detect) RSV (PCR) (Not Detect) Entero/Rhino (PCR) (Not Detect) Imaging Data CT scan - head: Attestation: I personally reviewed and interpreted this imaging study as follows: My Impression: NAP Radiologist's Impression: No CT evidence of acute intracranial abnormality CT scan - abdomen/pelvis: Radiologist's Impression: Bowel perforation ECG Data Attestation: I personally reviewed and interpreted this ECG as follows: Prior ECG tracings: not available for review Interpretation: NSR, rate 88, no ST segmental elevation or depression. No T wave inversions. No ectopy Discharge Plan Departure Clinical Impression: Perforated bowel Admit Date/Time: 05/24/20 05:47 Admit Provider: Marilu Blackburn
[2020-05-24 01:44] LABS: Add Manual Diff / Slide Review NO; Basophils Absolute Auto 0 /uL (0-100); Basophils Percent Auto 0.2 % (0-2); Eosinophils Absolute Auto 0 /uL (0-450); Eosinophils Percent Auto 0.1 % (2-4); Hematocrit 37.5 % (36-46); Hemoglobin 12.5 g/dL (12.0-16.0); Lymphocytes Absolute Auto 800 /uL (1100-4500); Lymphocytes Percent Auto 12.9 % (25-40); Mean Corpuscular HGB Conc 33.4 % (30-36); Mean Corpuscular Hemoglobin 28.7 PG (26-34); Mean Corpuscular Volume 85.9 fL (80-100); Monocytes Absolute Auto 500 /uL (0-900); Monocytes Percent Auto 8.3 % (3-14); Neutrophils Absolute Auto 4600 /uL (1500-7000); Neutrophils Percent Auto 78.5 % (50-75); Platelet Count 275 X10^3/uL (150-400); Red Blood Cell Count 4.36 X10^6/uL (4.0-5.2); Red Cell Distribution Width 15.1 % (11.6-14.8); White Blood Cell Count 5.9 X10^3/uL (4.5-11.0)
[2020-05-24 01:48] LABS: INR 0.9 (0.9-1.3); Prothrombin Time 10.5 SECONDS (10.1-12.7)
[2020-05-24] MEDS: ONDANSETRON 4 MG/2 ML INJ IV (01:51)
[2020-05-24] MEDS: PANTOPRAZOLE 40 MG VIAL IV (01:51)
[2020-05-24] MEDS: SODIUM CHLORIDE 0.9% 1,000 ML 1000 ML IV (01:51)
[2020-05-24 01:55] LABS: Alanine Aminotransferase 38 IU/L (<35); Albumin 3.7 g/dL (3.5-5.0); Albumin Globulin Ratio 1.4 (1.0-2.8); Alkaline Phosphatase 68 U/L (38-126); Aspartate Aminotransferase 39 IU/L (14-36); BUN Creatinine Ratio 59.7 (6-22); Bilirubin Total 0.6 mg/dL (0.2-1.3); Blood Urea Nitrogen 37 mg/dL (7-17); Calcium 9.3 mg/dL (8.4-10.2); Carbon Dioxide 31 mmol/L (22-32); Chloride 94 mmol/L (98-107); Creatine Kinase 25 U/L (30-135); Estimated Glomerular Filt Rate > 60.0 mL/min (>60); Globulin 2.6 g/dL (1.7-4.1); Glucose 170 mg/dL (80-110); HEMOLYSIS < 15 (0-50); Lipase 27 U/L (23-300); Potassium 3.5 mmol/L (3.4-5.1); Sodium 132 mmol/L (137-145); Total Protein 6.3 g/dL (6.3-8.2)
[2020-05-24 01:56] LABS: Lactate Dehydrogenase 486 U/L (313-618)
[2020-05-24 01:58] LABS: D Dimer 352 ng/mL (<230)
--- NOTE | 2020-05-24 01:58 | DI.CT.S_ITS ---
PROCEDURE: CT CHEST ABD PEL W CON INDICATIONS: severe abdomen and back pain, N/V, lung CA w/mets TECHNIQUE: After the administration of intravenous contrast, 5 mm thick sections acquired from the lung apices to the symphysis. 5 mm coronal and sagittal reformats were performed, with additional 7 mm MIP reformats through the lungs. For radiation dose reduction, the following was used: automated exposure control, adjustment of mA and/or kV according to patient size. COMPARISON: [facility], CT, CT CHEST ABDOMEN PELVIS WITH CONTRAST, 11/29/2019, 14:11. FINDINGS: Image quality: Excellent. CHEST: Lungs and pleura: Scarring and surgical changes in the right suprahilar region posteriorly of a prior right upper lobectomy. Soft tissue thickening in the right suprahilar region. Subpleural thickening of the right minor fissure, slight nodularity at the right major fissure and adjacent superior segment right lower lobe spiculated nodule, new. There are moderate emphysematous changes. Minor left posterior lung base atelectasis. No acute airspace opacities. No pleural effusions or pneumothorax. Central and peripheral airways appear patent and normal in caliber. Mediastinum: Heart size is normal. No pericardial effusion. No mediastinal or hilar adenopathy by size criteria. Thoracic aorta and central pulmonary arteries are normal in size. Mild aortic arch calcification. No acute aortic pathology. Esophagus is normal in caliber. No hiatal hernia. Chest wall: Right chest MediPort. No axillary or supraclavicular adenopathy by size criteria. Thyroid gland is heterogeneous with a dominant right lower pole thyroid nodule. . ABDOMEN: Solid organs: Liver is normal in size and enhancement. Multiple small cysts are present. Gallbladder is within normal limits. . Biliary system is non dilated. Pancreas enhances normally. There is a cyst in the ventral pancreatic tail. Spleen is normal in size and enhancement. No adrenal nodules. Kidneys demonstrate normal size and enhancement, without hydronephrosis. Cortical cysts in each kidney. Peritoneum and bowel: There are punctate foci of extraluminal gas anteriorly into the right of midline in the mid abdomen. There is free fluid in the mid abdomen to the right of midline and to the left of midline surrounding proximal small bowel. Small amount of free fluid is also seen in the pericolic gutters bilaterally in the lower quadrants. There is no small bowel obstruction. Diverticulosis of the sigmoid colon. Nodes and vessels: No retroperitoneal or mesenteric adenopathy by size criteria. Aorta and inferior vena cava are normal in size. Heavy atherosclerosis. Miscellaneous: No ventral hernias. PELVIS: Genitourinary: Bladder wall thickness is normal. The uterus is age-appropriate. Miscellaneous: No inguinal hernias or adenopathy. Bones: Diffuse osteopenia. Sclerosis and vertebroplasty changes of L3, probably prior pathologic fracture. Rounded sclerotic lesion in L2, similar compared to the prior study. There is a chronic sclerotic change of the spinous process of T7. No suspicious bony lesions. No vertebral body compression fractures. IMPRESSION: 1. There is extraluminal gas anteriorly in the abdomen suggesting a small contained perforation of bowel. Surgical consult is recommended. 2. No acute process in the chest. 3. New spiculated superior segment right lower lobe lung nodule. Three-month follow-up is recommended. 4. Stable osseous metastatic disease and vertebroplasty change of the low lumbar spine. 5. Surgical changes of right upper lobectomy with residual right suprahilar soft tissue. Interval resolution of prior right pleural effusion. 6. Concordant with preliminary report. Dictated by: Kaylee Benedict M.D. on 05/24/2020 at 6:52 Approved by: Kaylee Benedict M.D. on 05/24/2020 at 7:07
--- NOTE | 2020-05-24 01:58 | DI.CT.S_ITS ---
PROCEDURE: CT HEAD/BRAIN WO CON INDICATIONS: severe headache, confusion, critical hypertension TECHNIQUE: Noncontrast 4.5 mm thick angled axial sections acquired from the foramen magnum to the vertex, with coronal and sagittal reformats. For radiation dose reduction, the following was used: automated exposure control, adjustment of mA and/or kV according to patient size. COMPARISON: [facility], CT, HEAD WITHOUT CONTRAST, 04/26/2016, 12:18. FINDINGS: Image quality: Excellent. CSF spaces: Basal cisterns are patent. No extra-axial fluid collections. The ventricles are symmetric in size and shape. Brain: No intracranial bleeds or masses. There is left frontotemporal encephalomalacia and multiple foci of hypodensity throughout both basal ganglia. There is cerebral volume loss for age, with resultant ventricular and sulcal prominence. There are periventricular and deep white matter chronic small vessel ischemic changes. There is intracranial internal carotid artery atherosclerosis. Skull and face: Surgical changes of bifrontal craniotomy. Aneurysm clips are present. Calvarium and visualized facial bones appear intact, without suspicious lesions. Sinuses: Visualized sinuses and mastoids are clear. IMPRESSION: 1. No CT evidence of acute intracranial process. 2. Chronic left fronto temporal encephalomalacia, chronic microvascular ischemic changes, and surgical changes are stable. 3. Concordant with preliminary report. Dictated by: Kaylee Benedict M.D. on 05/24/2020 at 7:16 Approved by: Kaylee Benedict M.D. on 05/24/2020 at 7:21
[2020-05-24 02:07] LABS: NT-proBNP (BNP-Adult 18+) 449 pg/mL (<450); Troponin I < 0.012 ng/mL (0.01-0.034)
[2020-05-24 02:08] LABS: Procalcitonin < 0.05 ng/mL (<0.5)
[2020-05-24] MEDS: levoFLOXacin 750 MG/150 ML PIGGYBACK 100 MG IV (02:10)
[2020-05-24 02:32] LABS: Ferritin 160 ng/mL (11-264)
[2020-05-24] MEDS: SODIUM CHLORIDE 0.9% 500 ML 1000 ML IV (03:00)
[2020-05-24 03:18] LABS: COVID19 -Nasal RAPID Negative (Negative)
[2020-05-24 03:22] LABS: Adenovirus Not Detected (Not Detect); Bordetella pertussis Not Detected (Not Detect); Chlamydophila pneumoniae Not Detected (Not Detect); Coronavirus 229E Not Detected (Not Detect); Coronavirus HKU1 Not Detected (Not Detect); Coronavirus NL 63 Not Detected (Not Detect); Coronavirus OC43 Not Detected (Not Detect); Human Metapneumovirus Not Detected (Not Detect); Human Rhinovirus/Enterovirus Not Detected (Not Detect); Influenza A Not Detected (Not Detect); Influenza B Not Detected (Not Detect); Mycoplasma pneumoniae Not Detected (Not Detect); Parainfluenza Virus 1 Not Detected (Not Detect); Parainfluenza Virus 2 Not Detected (Not Detect); Parainfluenza Virus 3 Not Detected (Not Detect); Parainfluenza Virus 4 Not Detected (Not Detect); Respiratory Syncytial Virus Not Detected (Not Detect)
[2020-05-24 03:38] LABS: Reflexed Lactate in 2 Hours Y
[2020-05-24 04:31] LABS: Lactate 2HR (Lactic Acid Rflx) 3.3 mmol/L (0.7-2.1)
--- NOTE | 2020-05-24 05:26 | PM.CN ---
History of Present Illness Consult details Date Patient Seen: 05/24/20 Time Patient Seen: 05:27 Chief complaint: Abd pain an nausea Narrative: This 80-year-old woman with stage IV lung cancer who had a chemotherapy 4 days ago and then developed severe abdominal pain. She is found to have an intestinal perforation as evidenced by with free air on CT. She has abdominal pain now improved with narcotic some nausea. She appears mildly demented at baseline and is now confused secondary to sepsis. 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 Meds Home Medications and Allergies Home Medications Medication Instructions Recorded Confirmed Type lamotrigine 25 mg tablet 25 mg PO DAILY #30 tab 05/03/19 08/09/19 Rx [facility] 1 tab PO DAILY 05/16/19 07/17/19 History aspirin 81 mg PO DAILY 05/16/19 07/17/19 History hydroxyzine HCl 12.5 mg PO BID 05/16/19 07/17/19 History cyclobenzaprine 5 mg PO TID PRN #14 tab 08/09/19 Rx lidocaine 1 patch TOP DAILY #15 each 08/09/19 Rx tramadol 50 mg PO BID PRN #10 tab 08/09/19 Rx duloxetine 30 mg capsule,delayed 30 mg PO DAILY 04/10/20 History release aspirin 81 mg PO DAILY 05/24/20 05/24/20 History hydrochlorothiazide 12.5 mg PO BID 05/24/20 05/24/20 History potassium chloride 05/24/20 History Allergies Allergy/AdvReac Type Severity Reaction Status Date / Time lamotrigine Allergy Severe SIEZURES Verified 08/09/19 12:08 aspirin [ASPIRIN] Allergy Mild ONLY Verified 08/09/19 12:08 REGULAR STRENGTH ASA divalproex sodium Allergy Mild Verified 08/09/19 12:08 [From DEPAKOTE] gabapentin [GABAPENTIN] Allergy Mild Verified 08/09/19 12:08 levetiracetam [From KEPPRA] Allergy Mild Verified 08/09/19 12:08 penicillin G [PENICILLIN G] Allergy Mild Verified 08/09/19 12:08 phenytoin [PHENYTOIN] Allergy Mild Verified 08/09/19 12:08 Sulfa (Sulfonamide Allergy Mild Verified 08/09/19 12:08 Antibiotics) [SULFA (SULFONAMIDE ANTIBIOTICS)] topiramate [TOPIRAMATE] Allergy Mild Verified 08/09/19 12:08 cat dander [CAT DANDER] Allergy Unknown ITCHY, Verified 08/09/19 12:08 THROAT SWELLS naltrexone Allergy Unknown Verified 08/09/19 12:08 primidone [PRIMIDONE] Allergy Unknown REPORTS Verified 08/09/19 12:08 SHE IS ALLERGIC, VERY DIZZY hydroxyzine AdvReac Intermediate Itching Verified 08/09/19 12:08 PARTICULAR WATER Allergy Mild tolerates Uncoded 07/17/19 10:19 only distilled water POLYSTER Allergy Mild FEELS PAIN Uncoded 07/17/19 10:19 WHEN SKIN TOUCHES Review of Systems Review of Systems ROS: Yes unobtainable due to mental status Exam Vital Signs (past 8 hours): - 05/24/20 01:28 05/24/20 01:35 05/24/20 01:38 Temperature 99.8 F H Pulse Rate 101 H 88 87 Respiratory Rate 12 17 17 Blood Pressure 233/114 H 200/88 H Pulse Oximetry 96 94 93 05/24/20 01:50 05/24/20 02:00 05/24/20 02:10 Temperature Pulse Rate 85 84 84 Respiratory Rate 18 16 17 Blood Pressure 206/98 H 199/94 H 183/85 H Pulse Oximetry 95 95 96 05/24/20 02:20 05/24/20 02:30 05/24/20 02:46 Temperature Pulse Rate 78 87 97 H Respiratory Rate 15 19 Blood Pressure 164/79 H Pulse Oximetry 96 95 05/24/20 02:47 05/24/20 02:50 05/24/20 03:00 Temperature Pulse Rate 97 H 106 H 116 H Respiratory Rate 21 35 H 31 H Blood Pressure 186/88 H 181/91 H 179/91 H Pulse Oximetry 88 L 90 L 90 L 05/24/20 03:10 05/24/20 03:20 05/24/20 03:30 Temperature Pulse Rate 91 H 92 H 106 H Respiratory Rate 19 19 27 H Blood Pressure 176/84 H 167/84 H 166/96 H Pulse Oximetry 96 97 87 L 05/24/20 03:40 05/24/20 03:50 05/24/20 04:00 Temperature Pulse Rate 91 H 97 H 89 Respiratory Rate 23 22 21 Blood Pressure 158/79 H 171/91 H 167/82 H Pulse Oximetry 90 L 91 05/24/20 04:10 05/24/20 04:20 05/24/20 04:30 Temperature Pulse Rate 91 H 86 92 H Respiratory Rate 23 19 19 Blood Pressure 159/81 H 163/82 H 153/77 H Pulse Oximetry 92 92 93 05/24/20 04:40 05/24/20 04:50 05/24/20 05:00 Temperature Pulse Rate 92 H 88 86 Respiratory Rate 21 20 20 Blood Pressure 159/80 H 156/79 H 156/78 H Pulse Oximetry 92 92 92 Oxygen Delivery Method Room Air Narrative Exam Narrative: General-no acute distress, thin elderly woman HEENT-moist mucous membranes, no scleral icterus Neck-supple, no lymphadenopathy Chest- non labored respirations, clear to auscultation bilaterally Cardiac-regular rate no peripheral edema Abdomen-diffuse peritonitis Extremities-warm, well perfused Neurological-alert but confused Objective Labs Result Diagrams: 05/24/20 01:30 05/24/20 01:30 Labs: Laboratory Results - last 24 hr 05/24/20 05/24/20 05/24/20 01:30 01:30 01:30 WBC 5.9 RBC 4.36 Hgb 12.5 Hct 37.5 MCV 85.9 MCH 28.7 MCHC 33.4 RDW 15.1 H Plt Count 275 Neut % (Auto) 78.5 H Lymph % (Auto) 12.9 L [place] % (Auto) 8.3 Eos % (Auto) 0.1 L Baso % (Auto) 0.2 Neut # (Auto) 4600 Lymph # (Auto) 800 L [place] # (Auto) 500 Eos # (Auto) 0 Baso # (Auto) 0 PT INR D-Dimer 352 H Sodium Potassium Chloride Carbon Dioxide BUN Creatinine Estimated GFR BUN/Creatinine Ratio Glucose Lactate Calcium Ferritin 160 Total Bilirubin AST ALT Alkaline Phosphatase Lactate Dehydrogenase 486 Total Creatine Kinase CK-MB (CK-2) CK-MB (CK-2) Rel Index Troponin I NT-Pro-B Natriuret Pep Total Protein Albumin Globulin Albumin/Globulin Ratio Lipase Procalcitonin Chlamy pneumoniae PCR Adenovirus (PCR) B.parapertussis DNA PCR Coronavirus OC43 (PCR) Coronavirus HKU1 (PCR) Coronavirus 229E (PCR) COVID-19 PCR Coronavirus NL63 (PCR) Human Metapneumovir PCR Influenza Type A (PCR) Influenza Type B (PCR) M. pneumoniae (PCR) Parainfluenza 1 (PCR) Parainfluenza 2 (PCR) Parainfluenza 3 (PCR) Parainfluenza 4 (PCR) RSV (PCR) Entero/Rhino (PCR) 05/24/20 05/24/20 05/24/20 01:30 01:30 01:30 WBC RBC Hgb Hct MCV MCH MCHC RDW Plt Count Neut % (Auto) Lymph % (Auto) [place] % (Auto) Eos % (Auto) Baso % (Auto) Neut # (Auto) Lymph # (Auto) [place] # (Auto) Eos # (Auto) Baso # (Auto) PT 10.5 INR 0.9 D-Dimer Sodium 132 L Potassium 3.5 Chloride 94 L Carbon Dioxide 31 BUN 37 H Creatinine 0.62 Estimated GFR > 60.0 BUN/Creatinine Ratio 59.7 H Glucose 170 H Lactate Calcium 9.3 Ferritin Total Bilirubin 0.6 AST 39 H ALT 38 H Alkaline Phosphatase 68 Lactate Dehydrogenase Total Creatine Kinase 25 L CK-MB (CK-2) TNP CK-MB (CK-2) Rel Index TNP Troponin I < 0.012 NT-Pro-B Natriuret Pep 449 Total Protein 6.3 Albumin 3.7 Globulin 2.6 Albumin/Globulin Ratio 1.4 Lipase 27 Procalcitonin < 0.05 Chlamy pneumoniae PCR Adenovirus (PCR) B.parapertussis DNA PCR Coronavirus OC43 (PCR) Coronavirus HKU1 (PCR) Coronavirus 229E (PCR) COVID-19 PCR Coronavirus NL63 (PCR) Human Metapneumovir PCR Influenza Type A (PCR) Influenza Type B (PCR) M. pneumoniae (PCR) Parainfluenza 1 (PCR) Parainfluenza 2 (PCR) Parainfluenza 3 (PCR) Parainfluenza 4 (PCR) RSV (PCR) Entero/Rhino (PCR) 05/24/20 05/24/20 05/24/20 01:30 01:45 01:50 WBC RBC Hgb Hct MCV MCH MCHC RDW Plt Count Neut % (Auto) Lymph % (Auto) [place] % (Auto) Eos % (Auto) Baso % (Auto) Neut # (Auto) Lymph # (Auto) [place] # (Auto) Eos # (Auto) Baso # (Auto) PT INR D-Dimer Sodium Potassium Chloride Carbon Dioxide BUN Creatinine Estimated GFR BUN/Creatinine Ratio Glucose Lactate 3.0 H Calcium Ferritin Total Bilirubin AST ALT Alkaline Phosphatase Lactate Dehydrogenase Total Creatine Kinase CK-MB (CK-2) CK-MB (CK-2) Rel Index Troponin I NT-Pro-B Natriuret Pep Total Protein Albumin Globulin Albumin/Globulin Ratio Lipase Procalcitonin Chlamy pneumoniae PCR Not detected Adenovirus (PCR) Not detected B.parapertussis DNA PCR Not detected Coronavirus OC43 (PCR) Not detected Coronavirus HKU1 (PCR) Not detected Coronavirus 229E (PCR) Not detected COVID-19 PCR Negative Coronavirus NL63 (PCR) Not detected Human Metapneumovir PCR Not detected Influenza Type A (PCR) Not detected Influenza Type B (PCR) Not detected M. pneumoniae (PCR) Not detected Parainfluenza 1 (PCR) Not detected Parainfluenza 2 (PCR) Not detected Parainfluenza 3 (PCR) Not detected Parainfluenza 4 (PCR) Not detected RSV (PCR) Not detected Entero/Rhino (PCR) Not detected 05/24/20 04:13 WBC RBC Hgb Hct MCV MCH MCHC RDW Plt Count Neut % (Auto) Lymph % (Auto) [place] % (Auto) Eos % (Auto) Baso % (Auto) Neut # (Auto) Lymph # (Auto) [place] # (Auto) Eos # (Auto) Baso # (Auto) PT INR D-Dimer Sodium Potassium Chloride Carbon Dioxide BUN Creatinine Estimated GFR BUN/Creatinine Ratio Glucose Lactate 3.3 H Calcium Ferritin Total Bilirubin AST ALT Alkaline Phosphatase Lactate Dehydrogenase Total Creatine Kinase CK-MB (CK-2) CK-MB (CK-2) Rel Index Troponin I NT-Pro-B Natriuret Pep Total Protein Albumin Globulin Albumin/Globulin Ratio Lipase Procalcitonin Chlamy pneumoniae PCR Adenovirus (PCR) B.parapertussis DNA PCR Coronavirus OC43 (PCR) Coronavirus HKU1 (PCR) Coronavirus 229E (PCR) COVID-19 PCR Coronavirus NL63 (PCR) Human Metapneumovir PCR Influenza Type A (PCR) Influenza Type B (PCR) M. pneumoniae (PCR) Parainfluenza 1 (PCR) Parainfluenza 2 (PCR) Parainfluenza 3 (PCR) Parainfluenza 4 (PCR) RSV (PCR) Entero/Rhino (PCR) Assessment & Plan Assessment and plan (1) Perforated bowel: Status: Acute Assessment & Plan narrative: This is a 80-year-old woman with metastatic lung cancer who now has a intestinal perforation 4 days after her last chemotherapy session. Had an extensive discussion with patient her and her son. I told them that in she has a hole in her intestine and without surgical intervention to repair the perforation she will likely in short order. I told them that surgery would involve an exploratory laparotomy, bowel resection and likely ostomy formation. Using the [employer] risk calculator her risk of a serious complication is 52%, risk of 89% even with the operation, likelihood of discharge to rehab facility 85% with an anticipated hospital stay of 30 days. I shared theses statistics with the patient, her and son and explained that this is a statistical model and her results could be better or worse then predicetd. The patient and her agree that she would not want to undergo the pain and suffering associated with a major operation knowing that her chance of survival is low and that even if we can get her out of the hospital alive she would likely leave with an ostomy to a alf and that ultimately her lung cancer which still cause her demise in the near future. The patient is confused, she nods her head in agreement to some statements but is unable to demonstrate to me that she clearly understands the gravity of the situation. Her clearly states that she would not want an operation at this point and that he understands she will likely in the near future without intervention. I recommended that since they do not want surgery she is admitted to the medical service for pain management and end of life care.
--- NOTE | 2020-05-24 06:00 | P.HP_ITS ---
History of Present Illness History of Present Illness Date Patient Seen: 05/24/20 Time Patient Seen: 05:30 Date of Onset of Symptoms: 05/23/20 Chief complaint: Abd pain an nausea Narrative: Patient unable to provide a history. History is provided by conversation with the patient's , limited interaction with the patient verbally, Dr. Edwards, Dr. Rock and review of past medical records from [facility]. 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 Pacheco at [facility] and Dr. Nuñez, CT surgery, history of 3 cerebral aneurysms, and TIA presented to the ED for evaluation of generalized pain and frequent N/V today. In 2018, she underwent thoracoscopy with mediastinal and regional lymphadecnectomy in June 2019. She presented to the ED with sudden onset abdominal pain and was found to have an acute perforation of the proximal small bowel, ascending and transverse colon. She is currently undergoing chemotherapy, her last cycle was on May 21 and she is due for the next cycle on June 11. Review of past PCP notes indicates patient has multiple stated medication and material allergies including an allergy to tap water and polyester. She had previously been seeing a upholstery auto trimmer who provided her with a ?pendulum? that she would wave on a specific medication or material to determine if she had an allergy to it. is requesting that we provide the patient with non polyester bedding and distilled water. She has a seizure disorder for which she takes lamotrigine which was recently prescribed for her. Per her PCP notes, she was given a medication for her blood pressure by her upholstery auto trimmer however it is unknown which medication this might be. She was seen by surgery in the ED with the thought of taking her into the OR for repair of the perforation. After reviewing the CT scan, Surgery did not recommend she undergo surgery due to deep concerns for the patient likely ending up with a colostomy, prolong hospitalization with eventual discharge [place] a [place] [facility] [place] for rehab. After extensive discussions with the patient, her and her son, prior to my seeing the patient, it was decided to admit her for comfort care, for her to raise any additional questions for Surgery, to provide pain control and make her comfortable enough so that she could see the rest of her family. She was given one dose of IV levofloxacin and IV labetolol for blood pressure in the ED and blood cultures were drawn. Temperature 99.8?, blood pressure 138/74, heart rate 92, respiratory rate 24, oxygen saturation of 91% on room air. WBC 5.9, RBC 4.36, hemoglobin 12.5, hemat ocrit 37.5, platelet count 275, she had a mildly elevated D-dimer at 352 (normal age adjusted), sodium 132, potassium 3.5, chloride 94, CO2 31, creatinine 0.62, BUN 37, GFR is greater than 60, glucose 170, calcium 9.3, total bilirubin 0.6, AST 39, ALT 38, alk-phos 68, LDH 486, troponin was negative at 0.012, proBNP 449, lipase 27, procalcitonin 0.5, viral panel was negative including COVID-19. Head CT was negative for acute process, CT with contrast of the chest abdomen and pelvis indicated a 6 mm right lower lobe spiculated nodule, and presence of peritoneal free fluid and air ?most pronounced adjacent to the ascending and proximal transverse colon, ?scattered small foci of free peritoneal air suggestive of perforated hollow viscus. The foci of free air are most center adjacent to the proximal small bowel, ascending and transverse colon.? She is being admitted for comfort care however, Dr. Edwards will honor her wishes if she insists on having corrective surgery. He, the ED provider and myself did not feel she was aware enough at this point to make a decision and feel this should be addressed in the morning when more family members are available to her. Patient History Medical History (Updated 05/24/20 @ 06:05 by NUSRAT Gardiner) Blind left eye (Chronic ~1993) Brain aneurysm (Resolved) Burst blood vessel in eye (Resolved ~2008) Carpal tunnel syndrome (Chronic) Chicken pox (Resolved) GERD (gastroesophageal reflux disease) (Chronic) Hearing loss (Chronic) Hemorrhoid (Chronic) History of vaginal delivery (Resolved) Lung cancer (Resolved) Measles (Resolved) Mumps (Resolved) Osteoporosis (Chronic) Plantar warts (Chronic ~1958) Seasonal allergies (Chronic) Seizure (Resolved ~2014) Shingles (Chronic ~1994) Stroke (Resolved ~07/2014) Surgical History (Updated 05/24/20 @ 06:05 by NUSRAT Gardiner) Anesthesia (Resolved) History of abdominal surgery (Resolved ~1959) History of bad fall (Resolved ~2001) History of bilateral salpingo-oophorectomy (BSO) History of thumb surgery (Resolved ~1995) Thoracoscopic surgical procedure converted to open procedure (Acute) Family & Social History Family History Mother Osteoporosis Epilepsy Sister Age: 72 Brain aneurysm Father Diabetes mellitus Grandfather Tuberculosis Grandmother Tuberculosis Sister Brain aneurysm Safety & Behavioral: Feels Safe in Current Yes Environment Been Physically Hurt or No Threatened By a Person Tobacco & Substance use: Smoking Status Former smoker, 25 pack year history alcohol intake frequency denies Substance Use Type does not use Meds Home Medications and Allergies Home Medications Medication Instructions Recorded Confirmed Type lamotrigine 25 mg tablet 25 mg PO DAILY #30 tab 05/03/19 08/09/19 Rx Priority Eye Vitamin 1 tab PO DAILY 05/16/19 07/17/19 History aspirin 81 mg PO DAILY 05/16/19 07/17/19 History hydroxyzine HCl 12.5 mg PO BID 05/16/19 07/17/19 History cyclobenzaprine 5 mg PO TID PRN #14 tab 08/09/19 Rx lidocaine 1 patch TOP DAILY #15 each 08/09/19 Rx tramadol 50 mg PO BID PRN #10 tab 08/09/19 Rx duloxetine 30 mg capsule,delayed 30 mg PO DAILY 04/10/20 History release aspirin 81 mg PO DAILY 05/24/20 05/24/20 History hydrochlorothiazide 12.5 mg PO BID 05/24/20 05/24/20 History potassium chloride 05/24/20 History Allergies Allergy/AdvReac Type Severity Reaction Status Date / Time lamotrigine Allergy Severe SIEZURES Verified 08/09/19 12:08 aspirin [ASPIRIN] Allergy Mild ONLY Verified 08/09/19 12:08 REGULAR STRENGTH ASA divalproex sodium Allergy Mild Verified 08/09/19 12:08 [From DEPAKOTE] gabapentin [GABAPENTIN] Allergy Mild Verified 08/09/19 12:08 levetiracetam [From KEPPRA] Allergy Mild Verified 08/09/19 12:08 penicillin G [PENICILLIN G] Allergy Mild Verified 08/09/19 12:08 phenytoin [PHENYTOIN] Allergy Mild Verified 08/09/19 12:08 Sulfa (Sulfonamide Allergy Mild Verified 08/09/19 12:08 Antibiotics) [SULFA (SULFONAMIDE ANTIBIOTICS)] topiramate [TOPIRAMATE] Allergy Mild Verified 08/09/19 12:08 cat dander [CAT DANDER] Allergy Unknown ITCHY, Verified 08/09/19 12:08 THROAT SWELLS naltrexone Allergy Unknown Verified 08/09/19 12:08 primidone [PRIMIDONE] Allergy Unknown REPORTS Verified 08/09/19 12:08 SHE IS ALLERGIC, VERY DIZZY hydroxyzine AdvReac Intermediate Itching Verified 08/09/19 12:08 PARTICULAR WATER Allergy Mild tolerates Uncoded 07/17/19 10:19 only distilled water POLYSTER Allergy Mild FEELS PAIN Uncoded 07/17/19 10:19 WHEN SKIN TOUCHES Review of Systems Review of Systems ROS: Yes unobtainable due to mental status Exam Vital Signs (past 8 hours): - 05/24/20 01:28 05/24/20 01:35 05/24/20 01:38 Temperature 99.8 F H Pulse Rate 101 H 88 87 Respiratory Rate 12 17 17 Blood Pressure 233/114 H 200/88 H Pulse Oximetry 96 94 93 05/24/20 01:50 05/24/20 02:00 05/24/20 02:10 Temperature Pulse Rate 85 84 84 Respiratory Rate 18 16 17 Blood Pressure 206/98 H 199/94 H 183/85 H Pulse Oximetry 95 95 96 05/24/20 02:20 05/24/20 02:30 05/24/20 02:46 Temperature Pulse Rate 78 87 97 H Respiratory Rate 15 19 Blood Pressure 164/79 H Pulse Oximetry 96 95 05/24/20 02:47 05/24/20 02:50 05/24/20 03:00 Temperature Pulse Rate 97 H 106 H 116 H Respiratory Rate 21 35 H 31 H Blood Pressure 186/88 H 181/91 H 179/91 H Pulse Oximetry 88 L 90 L 90 L 05/24/20 03:10 05/24/20 03:20 05/24/20 03:30 Temperature Pulse Rate 91 H 92 H 106 H Respiratory Rate 19 19 27 H Blood Pressure 176/84 H 167/84 H 166/96 H Pulse Oximetry 96 97 87 L 05/24/20 03:40 05/24/20 03:50 05/24/20 04:00 Temperature Pulse Rate 91 H 97 H 89 Respiratory Rate 23 22 21 Blood Pressure 158/79 H 171/91 H 167/82 H Pulse Oximetry 90 L 91 05/24/20 04:10 05/24/20 04:20 05/24/20 04:30 Temperature Pulse Rate 91 H 86 92 H Respiratory Rate 23 19 19 Blood Pressure 159/81 H 163/82 H 153/77 H Pulse Oximetry 92 92 93 05/24/20 04:40 05/24/20 04:50 05/24/20 05:00 Temperature Pulse Rate 92 H 88 86 Respiratory Rate 21 20 20 Blood Pressure 159/80 H 156/79 H 156/78 H Pulse Oximetry 92 92 92 05/24/20 05:10 05/24/20 05:20 05/24/20 05:30 Temperature Pulse Rate 103 H 99 H 97 H Respiratory Rate 29 H 20 21 Blood Pressure 162/88 H 148/73 H 145/71 H Pulse Oximetry 92 93 91 05/24/20 05:40 05/24/20 05:50 Temperature Pulse Rate 93 H 92 H Respiratory Rate 23 24 Blood Pressure 152/74 H 138/74 Pulse Oximetry 92 91 Oxygen Delivery Method Room Air Narrative Exam Narrative: Gen: Alert, oriented, ill appearing 80 y.o. female, heavy makeup HEENT: normocephalic, atraumatic, conjunctiva clear, sclera non-icteric, oral mucosa pink and moist Neck: supple, full ROM, no JVD, trachea is midline Resp: Lungs CTA, non-labored breathing CV: RRR, no murmur or rubs Abd: soft, non-tender, normoactive BTs Skin: Port present in upper right chest with no s/s of infection, no lesions or rashes, dry and intact Neuro: Alert and oriented X 2-3, very heard of hearing with repetative questioning, appears confused. Speech faint and weak. Extremities: moves all 4 extremities, is ambulatory, negative Willem?s sign Psyche: normal mood and affect. Objective Labs Result Diagrams: 05/24/20 01:30 05/24/20 01:30 Labs: Laboratory Results - last 24 hr 05/24/20 05/24/20 05/24/20 01:30 01:30 01:30 WBC 5.9 RBC 4.36 Hgb 12.5 Hct 37.5 MCV 85.9 MCH 28.7 MCHC 33.4 RDW 15.1 H Plt Count 275 Neut % (Auto) 78.5 H Lymph % (Auto) 12.9 L [place] % (Auto) 8.3 Eos % (Auto) 0.1 L Baso % (Auto) 0.2 Neut # (Auto) 4600 Lymph # (Auto) 800 L [place] # (Auto) 500 Eos # (Auto) 0 Baso # (Auto) 0 PT INR D-Dimer 352 H Sodium Potassium Chloride Carbon Dioxide BUN Creatinine Estimated GFR BUN/Creatinine Ratio Glucose Lactate Calcium Ferritin 160 Total Bilirubin AST ALT Alkaline Phosphatase Lactate Dehydrogenase 486 Total Creatine Kinase CK-MB (CK-2) CK-MB (CK-2) Rel Index Troponin I NT-Pro-B Natriuret Pep Total Protein Albumin Globulin Albumin/Globulin Ratio Lipase Procalcitonin Chlamy pneumoniae PCR Adenovirus (PCR) B.parapertussis DNA PCR Coronavirus OC43 (PCR) Coronavirus HKU1 (PCR) Coronavirus 229E (PCR) COVID-19 PCR Coronavirus NL63 (PCR) Human Metapneumovir PCR Influenza Type A (PCR) Influenza Type B (PCR) M. pneumoniae (PCR) Parainfluenza 1 (PCR) Parainfluenza 2 (PCR) Parainfluenza 3 (PCR) Parainfluenza 4 (PCR) RSV (PCR) Entero/Rhino (PCR) 05/24/20 05/24/20 05/24/20 01:30 01:30 01:30 WBC RBC Hgb Hct MCV MCH MCHC RDW Plt Count Neut % (Auto) Lymph % (Auto) [place] % (Auto) Eos % (Auto) Baso % (Auto) Neut # (Auto) Lymph # (Auto) [place] # (Auto) Eos # (Auto) Baso # (Auto) PT 10.5 INR 0.9 D-Dimer Sodium 132 L Potassium 3.5 Chloride 94 L Carbon Dioxide 31 BUN 37 H Creatinine 0.62 Estimated GFR > 60.0 BUN/Creatinine Ratio 59.7 H Glucose 170 H Lactate Calcium 9.3 Ferritin Total Bilirubin 0.6 AST 39 H ALT 38 H Alkaline Phosphatase 68 Lactate Dehydrogenase Total Creatine Kinase 25 L CK-MB (CK-2) TNP CK-MB (CK-2) Rel Index TNP Troponin I < 0.012 NT-Pro-B Natriuret Pep 449 Total Protein 6.3 Albumin 3.7 Globulin 2.6 Albumin/Globulin Ratio 1.4 Lipase 27 Procalcitonin < 0.05 Chlamy pneumoniae PCR Adenovirus (PCR) B.parapertussis DNA PCR Coronavirus OC43 (PCR) Coronavirus HKU1 (PCR) Coronavirus 229E (PCR) COVID-19 PCR Coronavirus NL63 (PCR) Human Metapneumovir PCR Influenza Type A (PCR) Influenza Type B (PCR) M. pneumoniae (PCR) Parainfluenza 1 (PCR) Parainfluenza 2 (PCR) Parainfluenza 3 (PCR) Parainfluenza 4 (PCR) RSV (PCR) Entero/Rhino (PCR) 05/24/20 05/24/20 05/24/20 01:30 01:45 01:50 WBC RBC Hgb Hct MCV MCH MCHC RDW Plt Count Neut % (Auto) Lymph % (Auto) [place] % (Auto) Eos % (Auto) Baso % (Auto) Neut # (Auto) Lymph # (Auto) [place] # (Auto) Eos # (Auto) Baso # (Auto) PT INR D-Dimer Sodium Potassium Chloride Carbon Dioxide BUN Creatinine Estimated GFR BUN/Creatinine Ratio Glucose Lactate 3.0 H Calcium Ferritin Total Bilirubin AST ALT Alkaline Phosphatase Lactate Dehydrogenase Total Creatine Kinase CK-MB (CK-2) CK-MB (CK-2) Rel Index Troponin I NT-Pro-B Natriuret Pep Total Protein Albumin Globulin Albumin/Globulin Ratio Lipase Procalcitonin Chlamy pneumoniae PCR Not detected Adenovirus (PCR) Not detected B.parapertussis DNA PCR Not detected Coronavirus OC43 (PCR) Not detected Coronavirus HKU1 (PCR) Not detected Coronavirus 229E (PCR) Not detected COVID-19 PCR Negative Coronavirus NL63 (PCR) Not detected Human Metapneumovir PCR Not detected Influenza Type A (PCR) Not detected Influenza Type B (PCR) Not detected M. pneumoniae (PCR) Not detected Parainfluenza 1 (PCR) Not detected Parainfluenza 2 (PCR) Not detected Parainfluenza 3 (PCR) Not detected Parainfluenza 4 (PCR) Not detected RSV (PCR) Not detected Entero/Rhino (PCR) Not detected 05/24/20 04:13 WBC RBC Hgb Hct MCV MCH MCHC RDW Plt Count Neut % (Auto) Lymph % (Auto) [place] % (Auto) Eos % (Auto) Baso % (Auto) Neut # (Auto) Lymph # (Auto) [place] # (Auto) Eos # (Auto) Baso # (Auto) PT INR D-Dimer Sodium Potassium Chloride Carbon Dioxide BUN Creatinine Estimated GFR BUN/Creatinine Ratio Glucose Lactate 3.3 H Calcium Ferritin Total Bilirubin AST ALT Alkaline Phosphatase Lactate Dehydrogenase Total Creatine Kinase CK-MB (CK-2) CK-MB (CK-2) Rel Index Troponin I NT-Pro-B Natriuret Pep Total Protein Albumin Globulin Albumin/Globulin Ratio Lipase Procalcitonin Chlamy pneumoniae PCR Adenovirus (PCR) B.parapertussis DNA PCR Coronavirus OC43 (PCR) Coronavirus HKU1 (PCR) Coronavirus 229E (PCR) COVID-19 PCR Coronavirus NL63 (PCR) Human Metapneumovir PCR Influenza Type A (PCR) Influenza Type B (PCR) M. pneumoniae (PCR) Parainfluenza 1 (PCR) Parainfluenza 2 (PCR) Parainfluenza 3 (PCR) Parainfluenza 4 (PCR) RSV (PCR) Entero/Rhino (PCR) Assessment & Plan Assessment & Plan narrative: Stefany Rider is an unfortunate 80-year-old female with right-sided bronchogenic lung cancer unknown staging who was admitted for management of pain associated with a perforated small bowel. Small bowel and transverse colon perforation, acute, present on admission -cause is believed to be due to her chemotherapy course - who is her next of kin is currently not opting for her to undergo surgery, will have further discussions with family and patient over the next day regarding this when the patient seems to be more cognizant -she will be NPO, IV morphine 2 mg q.4 hours as needed for pain and oral Tylenol for fever and mild pain -Dr. Edwards consulting as needed -she was given IV Levaquin in the emergency department once. Bronchogenic right-sided lung cancer - ED has been trying to obtain records from Dr. Pacheco's office and they need to be informed that the patient is admitted here. Essential hypertension -She was administered a one time dose of IV labetolol 10 mg in the ED for elevated blood pressure and she is written for this prn q 4 hours -She has a prescription for 12.5 mg of hydrochlorothiazide b.i.d., however there is a question of whether she actually takes it Seizure discorder -She has a recent prescription of lamotrigine 25 mg daily, this will be continued unless she objects Depression -she has a recent prescription for duloxetine 30 mg p.o. daily, this will be continued unless she objects to taking this Consults: Dr. Edwards, General Surgery consult and involvement is appreciated. Requesting palliative care consult. Patient is admitted under inpatient status with expected length of stay greater than 2 midnights due to severity of presenting symptoms, risk of adverse event, and complexity of treatment plan. FEN: IV NS at 100 ml/hour, NPO, VTE prophylaxis: None, due to patient's intolerances to polyester based fabrics, Dispo: Probable end of life care in-house or eventual discharge on hospice if she survives long enough to arrange services Code Status: DNR/DNI as discussed with patient and her
[2020-05-24] MEDS: SODIUM CHLORIDE 0.45% 1,000 ML 100 ML IV (06:26)
[2020-05-24] MEDS: MORPHINE 2 MG/ML INJ IV ×7 (06:48→20:26)
--- NOTE | 2020-05-24 07:17 | PC.ADMIT ---
[id number] Admission Note: Pt arrived to unit 0630 without issues. alert and oriented x3, slow to respond. at bedside helping respond to questions. Morphine given for pain 04/24 in ab. Pt now resting in bed without complaints. Skin check done with YO burnham. No complaints at this time The patient,Stefany Rider,80 y/o, was given written information regarding hospital policies, unit procedures and contact persons. Patient's smoking status: Former smoker. Vital Signs - 8 hr 05/24/20 01:28 05/24/20 01:35 05/24/20 01:38 Temperature 99.8 F H Pulse Rate 101 H 88 87 Respiratory Rate 12 17 17 Blood Pressure 233/114 H 200/88 H Pulse Oximetry 96 94 93 05/24/20 01:50 05/24/20 02:00 05/24/20 02:10 Temperature Pulse Rate 85 84 84 Respiratory Rate 18 16 17 Blood Pressure 206/98 H 199/94 H 183/85 H Pulse Oximetry 95 95 96 05/24/20 02:20 05/24/20 02:30 05/24/20 02:46 Temperature Pulse Rate 78 87 97 H Respiratory Rate 15 19 Blood Pressure 164/79 H Pulse Oximetry 96 95 05/24/20 02:47 05/24/20 02:50 05/24/20 03:00 Temperature Pulse Rate 97 H 106 H 116 H Respiratory Rate 21 35 H 31 H Blood Pressure 186/88 H 181/91 H 179/91 H Pulse Oximetry 88 L 90 L 90 L 05/24/20 03:10 05/24/20 03:20 05/24/20 03:30 Temperature Pulse Rate 91 H 92 H 106 H Respiratory Rate 19 19 27 H Blood Pressure 176/84 H 167/84 H 166/96 H Pulse Oximetry 96 97 87 L 05/24/20 03:40 05/24/20 03:50 05/24/20 04:00 Temperature Pulse Rate 91 H 97 H 89 Respiratory Rate 23 22 21 Blood Pressure 158/79 H 171/91 H 167/82 H Pulse Oximetry 90 L 91 05/24/20 04:10 05/24/20 04:20 05/24/20 04:30 Temperature Pulse Rate 91 H 86 92 H Respiratory Rate 23 19 19 Blood Pressure 159/81 H 163/82 H 153/77 H Pulse Oximetry 92 92 93 05/24/20 04:40 05/24/20 04:50 05/24/20 05:00 Temperature Pulse Rate 92 H 88 86 Respiratory Rate 21 20 20 Blood Pressure 159/80 H 156/79 H 156/78 H Pulse Oximetry 92 92 92 05/24/20 05:10 05/24/20 05:20 05/24/20 05:30 Temperature Pulse Rate 103 H 99 H 97 H Respiratory Rate 29 H 20 21 Blood Pressure 162/88 H 148/73 H 145/71 H Pulse Oximetry 92 93 91 05/24/20 05:40 05/24/20 05:50 05/24/20 06:29 Temperature 98.8 F Pulse Rate 93 H 92 H 100 H Respiratory Rate 23 24 20 Blood Pressure 152/74 H 138/74 138/89 Pulse Oximetry 92 91 97
[2020-05-24] MEDS: SCOPOLAMINE 1 PATCH TOP (09:18)
--- NOTE | 2020-05-24 15:19 | CM.DANOTE ---
Discharge Planning/Care Management DCP: assessment: initiated: case received and met briefly this morning with pt and her while Dr. Gagnon was in the banerjee having an extensive conversation with pt's son. Introduced self and role and updated white board with d/c planning numbers. Assured them our team would be following to help as we could as the POC unfolded. Pt is an 80 year old female who admitted early this morning to care of hospitalist team. Master Police Detective: [place] [facility]: Dr. Edwards. PCP: Dr. Erwin Pt is a medically complex pt who is currently receiving care form oncology at [facility]. She has admitted with perforation of intestine and is not a good candidate for surgery. POC pathways have been discussed extensively by Dr. Gagnon, Dr. Edwards and pt and family (with pt's being the primary spokesperson. Pt has now transitioned to a palliative/symtom management POC with demise anticipated soon. Dr. Gagnon did request this afternoon that a referral be sent in to [facility] today in case this is needed but she further stated she did NOT want this discussed with pt or family at this time as pt will likely pass in the hospital.. Comfort Cart for family is provided. Night Stocker Jitendra is providing prn support. DCP team to continue to follow for support, advocacy and any needed d/c dispo options. Pt is here as INPT: has Payer[facility] Medicare [facility] so if a snf setting is needed for extended end of life care this will be an option. CM Discharge Assessment Start: 05/24/20 15:18 Freq: Status: Active Protocol: Document 05/24/20 15:18 ITV (Rec: 05/24/20 15:19 ITV [id number]) Discharge Planning Assessment Advance Directives? Yes History Provided By Patient,Family Member,Medical Record Prior Living Arrangements House Household Members spouse Review Status In Process
--- NOTE | 2020-05-24 16:46 | PM.PN.1 ---
Subjective Subjective Date Patient Seen: 05/24/20 Interval history: Brief progress note: Patient seen and examined. Discussed with the patient's son Donato at bedside further details of his mothers bowel perforation and treatment with exploratory laparotomy with bowel resection and possible colostomy for which the patient and her spouse Andres previously declined. General surgery, Dr. Edwards, also came to bedside and further discussed details of a potential operation. The patient likely has mild dementia and does not seem to understand the gravity of the situation or that she is dying. The patient's spouse Andres Rider is the patient's surrogate decision maker and continues to act in accordance with the patient's previously stated wishes which would be not to pursue heroic measures and keep the patient comfortable and without suffering. Continue palliative care and pain control. Exam Vital Signs (past 8 hours): - 05/24/20 11:32 05/24/20 11:37 Pulse Oximetry 98 94 Oxygen Delivery Method Room Air Oxygen Flow Rate 2 Objective Labs Result Diagrams: 05/24/20 01:30 05/24/20 01:30 Labs: Laboratory Results - last 24 hr 05/24/20 05/24/20 05/24/20 01:30 01:30 01:30 WBC 5.9 RBC 4.36 Hgb 12.5 Hct 37.5 MCV 85.9 MCH 28.7 MCHC 33.4 RDW 15.1 H Plt Count 275 Neut % (Auto) 78.5 H Lymph % (Auto) 12.9 L [place] % (Auto) 8.3 Eos % (Auto) 0.1 L Baso % (Auto) 0.2 Neut # (Auto) 4600 Lymph # (Auto) 800 L [place] # (Auto) 500 Eos # (Auto) 0 Baso # (Auto) 0 PT INR D-Dimer 352 H Sodium Potassium Chloride Carbon Dioxide BUN Creatinine Estimated GFR BUN/Creatinine Ratio Glucose Lactate Calcium Ferritin 160 Total Bilirubin AST ALT Alkaline Phosphatase Lactate Dehydrogenase 486 Total Creatine Kinase CK-MB (CK-2) CK-MB (CK-2) Rel Index Troponin I NT-Pro-B Natriuret Pep Total Protein Albumin Globulin Albumin/Globulin Ratio Lipase Procalcitonin Chlamy pneumoniae PCR Adenovirus (PCR) B.parapertussis DNA PCR Coronavirus OC43 (PCR) Coronavirus HKU1 (PCR) Coronavirus 229E (PCR) COVID-19 PCR Coronavirus NL63 (PCR) Human Metapneumovir PCR Influenza Type A (PCR) Influenza Type B (PCR) M. pneumoniae (PCR) Parainfluenza 1 (PCR) Parainfluenza 2 (PCR) Parainfluenza 3 (PCR) Parainfluenza 4 (PCR) RSV (PCR) Entero/Rhino (PCR) 05/24/20 05/24/20 05/24/20 01:30 01:30 01:30 WBC RBC Hgb Hct MCV MCH MCHC RDW Plt Count Neut % (Auto) Lymph % (Auto) [place] % (Auto) Eos % (Auto) Baso % (Auto) Neut # (Auto) Lymph # (Auto) [place] # (Auto) Eos # (Auto) Baso # (Auto) PT 10.5 INR 0.9 D-Dimer Sodium 132 L Potassium 3.5 Chloride 94 L Carbon Dioxide 31 BUN 37 H Creatinine 0.62 Estimated GFR > 60.0 BUN/Creatinine Ratio 59.7 H Glucose 170 H Lactate Calcium 9.3 Ferritin Total Bilirubin 0.6 AST 39 H ALT 38 H Alkaline Phosphatase 68 Lactate Dehydrogenase Total Creatine Kinase 25 L CK-MB (CK-2) TNP CK-MB (CK-2) Rel Index TNP Troponin I < 0.012 NT-Pro-B Natriuret Pep 449 Total Protein 6.3 Albumin 3.7 Globulin 2.6 Albumin/Globulin Ratio 1.4 Lipase 27 Procalcitonin < 0.05 Chlamy pneumoniae PCR Adenovirus (PCR) B.parapertussis DNA PCR Coronavirus OC43 (PCR) Coronavirus HKU1 (PCR) Coronavirus 229E (PCR) COVID-19 PCR Coronavirus NL63 (PCR) Human Metapneumovir PCR Influenza Type A (PCR) Influenza Type B (PCR) M. pneumoniae (PCR) Parainfluenza 1 (PCR) Parainfluenza 2 (PCR) Parainfluenza 3 (PCR) Parainfluenza 4 (PCR) RSV (PCR) Entero/Rhino (PCR) 05/24/20 05/24/20 05/24/20 01:30 01:45 01:50 WBC RBC Hgb Hct MCV MCH MCHC RDW Plt Count Neut % (Auto) Lymph % (Auto) [place] % (Auto) Eos % (Auto) Baso % (Auto) Neut # (Auto) Lymph # (Auto) [place] # (Auto) Eos # (Auto) Baso # (Auto) PT INR D-Dimer Sodium Potassium Chloride Carbon Dioxide BUN Creatinine Estimated GFR BUN/Creatinine Ratio Glucose Lactate 3.0 H Calcium Ferritin Total Bilirubin AST ALT Alkaline Phosphatase Lactate Dehydrogenase Total Creatine Kinase CK-MB (CK-2) CK-MB (CK-2) Rel Index Troponin I NT-Pro-B Natriuret Pep Total Protein Albumin Globulin Albumin/Globulin Ratio Lipase Procalcitonin Chlamy pneumoniae PCR Not detected Adenovirus (PCR) Not detected B.parapertussis DNA PCR Not detected Coronavirus OC43 (PCR) Not detected Coronavirus HKU1 (PCR) Not detected Coronavirus 229E (PCR) Not detected COVID-19 PCR Negative Coronavirus NL63 (PCR) Not detected Human Metapneumovir PCR Not detected Influenza Type A (PCR) Not detected Influenza Type B (PCR) Not detected M. pneumoniae (PCR) Not detected Parainfluenza 1 (PCR) Not detected Parainfluenza 2 (PCR) Not detected Parainfluenza 3 (PCR) Not detected Parainfluenza 4 (PCR) Not detected RSV (PCR) Not detected Entero/Rhino (PCR) Not detected 05/24/20 04:13 WBC RBC Hgb Hct MCV MCH MCHC RDW Plt Count Neut % (Auto) Lymph % (Auto) [place] % (Auto) Eos % (Auto) Baso % (Auto) Neut # (Auto) Lymph # (Auto) [place] # (Auto) Eos # (Auto) Baso # (Auto) PT INR D-Dimer Sodium Potassium Chloride Carbon Dioxide BUN Creatinine Estimated GFR BUN/Creatinine Ratio Glucose Lactate 3.3 H Calcium Ferritin Total Bilirubin AST ALT Alkaline Phosphatase Lactate Dehydrogenase Total Creatine Kinase CK-MB (CK-2) CK-MB (CK-2) Rel Index Troponin I NT-Pro-B Natriuret Pep Total Protein Albumin Globulin Albumin/Globulin Ratio Lipase Procalcitonin Chlamy pneumoniae PCR Adenovirus (PCR) B.parapertussis DNA PCR Coronavirus OC43 (PCR) Coronavirus HKU1 (PCR) Coronavirus 229E (PCR) COVID-19 PCR Coronavirus NL63 (PCR) Human Metapneumovir PCR Influenza Type A (PCR) Influenza Type B (PCR) M. pneumoniae (PCR) Parainfluenza 1 (PCR) Parainfluenza 2 (PCR) Parainfluenza 3 (PCR) Parainfluenza 4 (PCR) RSV (PCR) Entero/Rhino (PCR)
--- NOTE | 2020-05-24 18:49 | PC.NURSE ---
Addendum entered by Nicolle Monroy R.N. 05/24/20 21:22: Medicated prior to Tobar placement. Pt tolerated procedure well. Resting comfortably, RR non-labored and WNL. Original Note: Assumed care of pt at 1530. Pt resting in bed. Family members at bedside. Family states they request minimal interventions and declines full nursing assessments. Medicating per mar per comfort measures. Family calling appropriately for needs.
[2020-05-24] MEDS: LORazepam 2 MG/ML INJ 1 MG IV (20:27)
[2020-05-25] MEDS: MORPHINE 2 MG/ML INJ IV ×3 (00:42→18:37)
[2020-05-25] MEDS: SODIUM CHLORIDE 0.9% FLUSH 10 ML IV ×3 (00:43→18:57)
[2020-05-25 05:26] VITALS: BP 121/71; PULSE 81; RESP 16; TEMP 37.1; O2SAT 85
--- NOTE | 2020-05-25 08:02 | PC.NURSE ---
Addendum entered by Ricardo Hart R.N. 05/25/20 14:46: Pt slept after PRN diphenhydramine administration. RR even/unlabored. Intermittently interactive with family but drifts back to sleep easily. Addendum entered by Ricardo Hart R.N. 05/25/20 10:15: 0850- Family reports pt is scratching her arms and requesting PRN medication for itching. Upon entering room, pt is awake and alert. She is unable or unwilling to tell me her name. She is unaware she is in the hospital until reorientation is provided. Asked pt if she was having any pain. She states, I feel like a million bucks. She also relates that she slept well overnight which was needed due to not having slept for 2 days prior. Administered PRN med for c/o itching. Family declines VS/head to toe assessment at this time. Original Note: Continuing limited interventions with goal of comfort. Family at bedside. Pt is resting with even/unlabored RR. Eyes are closed. Does not awaken when discussing plan of care with family. Allowing rest. Family is asking appropriate questions about end of life process. Educated to end of life process, plan of care, available interventions to promote comfort. Family verbalizes understanding.
[2020-05-25] MEDS: diphenhydrAMINE 50 MG/ML VIAL 25 MG IV (08:52)
--- NOTE | 2020-05-25 14:29 | CM.DPC ---
Addendum entered by Carmen Catalan R.N. 05/25/20 15:57: Dr. Gagnon met with family, , and son Donato. She indicated to , Andres, that patient can't tolerate further treatments from oncology. Discussed hospice. Let and son know about hospice, and that it does not cover private caregivers. Gave him [employer] book. Left a message with Anaid at [facility], for and son would like an informational phone call between the two. Anaid called back, and stated that she would reach out to and son, and will look at schedule to see how soon they can get patient on services. Also, called [facility], and faxed referral. They mentioned that they have no openings until Mon, but could potentially deliver equipment sooner. Will reach out tomorrow to family. Updated Anaid about conversation with family and private caregiving. Original Note: DCP Cont: Discussed patient briefly at team rounds. Dr. Gagnon is to be meeting with family to discuss hospice. Several family members have been in patient's room. Anaid from [facility] called. She gave her phone number, for she is working at home. Her number is: [phone]. Let her know that this heel caser would update her after hospitalist has discussion with family. Anaid stated that if it's in [place], they may possibly be able to expedite sooner, but not clear yet at this time as to when hospice would come out. As soon as hospitalist speaks to family and updates this heel caser, and if hospice is requested, will call Luci at [facility] the to see when patient can be put on to services. She would also need to have equipment delivered. P: DCP to continue to follow, and will see what conversation transpires between hospitalist and family members. Jitendra Starr, brownfield redevelopment site manager, was also in seeing patient earlier today. Carmen Catalan RN/Mechanical Systems Control Engineer
--- NOTE | 2020-05-25 14:47 | PM.PN.1 ---
Subjective Subjective Date Patient Seen: 05/25/20 Interval history: Subjective exam unobtainable as patient is minimally responsive. Discussed patient with her oncologist Dr. Pacheco who believes the patient would not be able to endure the operation and agreed that she should be kept comfortable. Discussed the possibility of hospice with the patients spouse Andres. Exam Vital Signs (past 8 hours): Oxygen Delivery Method Room Air Oxygen Flow Rate 0 Narrative Exam Narrative: General: Elderly cachectic-appearing female lying in bed minimally responsive and appears comfortable. HEENT: Normocephalic, atraumatic. External ears without defect. Pupils pinpoint, equal, round, and reactive to light Oropharynx with dry mucosa. Cardiovascular: Regular rate and rhythm without murmurs, rubs, or gallops appreciated Pulmonary: Clear to auscultation bilaterally without crackles, wheezes, or rhonchi. Normal respiratory effort with no use of accessory muscles. Abdomen: Slightly firm, tender to palpation, bowel sounds absent. Extremities: No clubbing, cyanosis, or edema. Skin: Normal temperature, turgor, and texture; no rash, ulcers, or subcutaneous nodules appreciated. Objective Labs Result Diagrams: 05/24/20 01:30 05/24/20 01:30 Assessment & Plan Assessment & Plan narrative: Stefany Rider is an unfortunate 80-year-old female with right-sided stage 4 metastatic bronchogenic lung cancer on immunotherapy who was admitted for management of pain associated with a perforated small bowel. 1. Palliative care. -Continue comfort care medications: including acetaminophen, morphine, lorazepam, Benadryl, scopolamine and atropine. -Continue Tobar for comfort. 2. Small bowel and transverse colon perforation, acute, present on admission. -Possibly due to cancer, immunotherapy, or severe malnutrition. -Patients spouse who is next of kin and her surrogate decision maker has made decision not to pursue surgical intervention as patient is severely malnourished and immunocompromised making her a high risk surgical candidate and unlikely to survive operation and if she did would have a long protracted course with little chances of healing and high risk of complication and/or . -Consulted general surgery, Dr. Edwards, who recommended no surgical intervention and keeping patient comfortable. 3. 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 Stable. -Followed by oncology Dr. Pacheco. Patient has been on immunotherapy. 4. Hypertension, chronic, present on admission. Stable. -Discontinued monitoring or treating as patient is palliative care only. 5. Depression, chronic, present on admission. Stable. -Discontinued duloxetine 30 mg as patient is palliative care only. 6. Severe chronic protein calorie malnutrition, present on admission. -BMI 15.4. -Patient is severely malnourished and immunocompromised making her a high risk surgical candidate and unlikely to survive operation and if she did would have a long protracted course with little chances of healing and high risk of complication and/or . Code Status: DNR/DNI, surrogate decision maker is her spouse VTE prophylaxis: Contraindicated Disposition: Probable end of life care in-house or eventual discharge on hospice if she survives long enough to arrange services.
[2020-05-25] MEDS: ONDANSETRON 4 MG/2 ML INJ IV (15:03)
[2020-05-26] MEDS: MORPHINE 2 MG/ML INJ IV ×5 (02:24→23:18)
--- NOTE | 2020-05-26 06:06 | PC.NURSE ---
Pt requested PRN medication x1 and requested only 2mg not the 2mg that is ordered. Pt appeared comfortable at reassessment. Tobar cath patent. at bedside for most of the night.
[2020-05-26 08:00] VITALS: BP 139/68; PULSE 69; RESP 18; TEMP 36.8; O2SAT 85
[2020-05-26] MEDS: SODIUM CHLORIDE 0.9% FLUSH 10 ML IV ×2 (10:35→18:33)
--- NOTE | 2020-05-26 12:01 | CM.DPC ---
DCP Cont: [facility] She indicated that she would call patient this morning. Called Anaid back after team rounds, and stated, is on board with their hospice, does not want [facility]. Anaid faxed over hospice consent forms to be signed. Spoke to Luci at [facility] as well. Stated that Lucero can open patient for admission in the home tomorrow at 11:00. BLS transport will need to be arranged. Luci is unsure what time the equipment will be delivered. Met with patient's , Andres, and son. Went over hospice consent, he signed for patient. Faxed back to Hospice and let Anaid know that forms were completed. Let him know that patient would need to be home by 11:00. Discussed having her go BLS, since she can't safely sit up in the chair. Let him know that he most likely will get a bill, and estimated cost of transport, so he is aware. He has family members that will be assisting at home as well, as son was also present and stated that they would be helping out. P: DCP to continue to follow. Patient will need to be discharged early, and BLS transport is to sampler pickup at 10:00 at the latest, for start of care in the home at 11:00. Equipment will also be delivered. BLS form will need to be signed, will attempt to get Dr. Gonsales to sign, and update her on plan. Carmen Catalan RN/Conservation Biology Professor
--- NOTE | 2020-05-26 14:07 | PM.PN.1 ---
Subjective Subjective Date Patient Seen: 05/26/20 Interval history: The patient is an 80-year-old female awake and alert, and in no acute distress. She denies any abdominal pain. She does report some Gas but no bowel movement. Patient is awake and alert and seems less confused today than by report yesterday. Exam Vital Signs (past 8 hours): - 05/26/20 08:00 Temperature 98.2 F Pulse Rate 69 Respiratory Rate 18 Blood Pressure 139/68 Pulse Oximetry 85 L Oxygen Delivery Method Room Air Oxygen Flow Rate 0 Narrative Exam Narrative: Pleasant female sitting up in no obvious distress Lungs: Clear to auscultation Cardiac exam regular rate and rhythm normal S1-S2 with a 2/6 systolic ejection Abdomen: Mildly distended, soft mildly tender, tender in the upper and lower quadrants. There are normoactive bowel tones. No palpable masses appreciated Extremities: No edema Objective Labs Result Diagrams: 05/24/20 01:30 05/24/20 01:30 Assessment & Plan Assessment & Plan narrative: Palliative care. -Continue comfort care medications: including acetaminophen, morphine, lorazepam, Benadryl, scopolamine and atropine. -Continue Tobar for comfort. -discharge home with hospice tomorrow -family will arrange for home caregiver for evenings. 2. Small bowel and transverse colon perforation, acute, present on admission. -Possibly due to cancer, immunotherapy, or severe malnutrition. -Patients spouse who is next of kin and her surrogate decision maker has made decision not to pursue surgical intervention as patient is severely malnourished and immunocompromised making her a high risk surgical candidate and unlikely to survive operation and if she did would have a long protracted course with little chances of healing and high risk of complication and/or . -Consulted general surgery, Dr. Edwards, who recommended no surgical intervention and keeping patient comfortable. 3. 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 Stable. -Followed by oncology Dr. Pacheco. Patient has been on immunotherapy. -transition to hospice end of life care at this time 4. Hypertension, chronic, present on admission. Stable. -Discontinued monitoring or treating as patient is palliative care only. 5. Depression, chronic, present on admission. Stable. -Discontinued duloxetine 30 mg as patient is palliative care only. 6. Severe chronic protein calorie malnutrition, present on admission. -BMI 15.4. -Patient is severely malnourished and immunocompromised making her a high risk surgical candidate and unlikely to survive operation and if she did would have a long protracted course with little chances of healing and high risk of complication and/or . Code Status: DNR/DNI, surrogate decision maker is her spouse VTE prophylaxis: Contraindicated
[2020-05-26] MEDS: diphenhydrAMINE 50 MG/ML VIAL 25 MG IV (18:33)
--- NOTE | 2020-05-27 02:09 | PC.NURSE ---
Pt resting comfortably w/grandson at her side. Oriented to self only. Pt has periods of nonsensical speech which her grandson confirms has been happening frequently. Grandson requests pain meds for his grandmother, stating he has seen symptoms of pain, she is getting restless and fidgeting and I know she's hurting. Her grandson also questions if Dilaudid might make her more with-it. When the patient is asked if she is in pain, she answers No, I feel fine.
--- NOTE | 2020-05-27 08:23 | PC.NURSE ---
Addendum entered by Yolanda Phillips R.N. 05/27/20 11:11: Transport arrived to take Pt to [facility] to meet Hosp[facility], concerns raised with bed not delievered yet. Transport and this RN held Pt until 1030 d/t bed delivery. Medicated with IV Morphine prior to transport. IV removed/deaccessed. Original Note: AM shift Pt is alert in bed, and grandson requesting pain medication. Declined pain control when this RN came back with meds 10 min later.
--- NOTE | 2020-05-27 08:33 | PM.DS.1 ---
History of Present Illness History of Present Illness Date Patient Seen: 05/27/20 Chief complaint: Abd pain an nausea Narrative: Patient unable to provide a history. History is provided by conversation with the patient's , limited interaction with the patient verbally, Dr. Edwadrs, Dr. Rock and review of past medical records from [facility]. 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 Pacheco at [facility] and Dr. Nuñez, CT surgery, history of 3 cerebral aneurysms, and TIA presented to the ED for evaluation of generalized pain and frequent N/V today. In 2018, she underwent thoracoscopy with mediastinal and regional lymphadecnectomy in June 2019. She presented to the ED with sudden onset abdominal pain and was found to have an acute perforation of the proximal small bowel, ascending and transverse colon. She is currently undergoing chemotherapy, her last cycle was on May 21 and she is due for the next cycle on June 11. Review of past PCP notes indicates patient has multiple stated medication and material allergies including an allergy to tap water and polyester. She had previously been seeing a retail shift supervisor who provided her with a ?pendulum? that she would wave on a specific medication or material to determine if she had an allergy to it. is requesting that we provide the patient with non polyester bedding and distilled water. She has a seizure disorder for which she takes lamotrigine which was recently prescribed for her. Per her PCP notes, she was given a medication for her blood pressure by her retail shift supervisor however it is unknown which medication this might be. She was seen by surgery in the ED with the thought of taking her into the OR for repair of the perforation. After reviewing the CT scan, Surgery did not recommend she undergo surgery due to deep concerns for the patient likely ending up with a colostomy, prolong hospitalization with eventual discharge to a halfway for rehab. After extensive discussions with the patient, her and her son, prior to my seeing the patient, it was decided to admit her for comfort care, for her to raise any additional questions for Surgery, to provide pain control and make her comfortable enough so that she could see the rest of her family. She was given one dose of IV levofloxacin and IV labetolol for blood pressure in the ED and blood cultures were drawn. Temperature 99.8?, blood pressure 138/74, heart rate 92, respiratory rate 24, oxygen saturation of 91% on room air. WBC 5.9, RBC 4.36, hemoglobin 12.5, hematocrit 37.5, platelet count 275, she had a mildly elevated D-dimer at 352 (normal age adjusted), sodium 132, potassium 3.5, chloride 94, CO2 31, creatinine 0.62, BUN 37, GFR is greater than 60, glucose 170, calcium 9.3, total bilirubin 0.6, AST 39, ALT 38, alk-phos 68, LDH 486, troponin was negative at 0.012, proBNP 449, lipase 27, procalcitonin 0.5, viral panel was negative including COVID-19. Head CT was negative for acute process, CT with contrast of the chest abdomen and pelvis indicated a 6 mm right lower lobe spiculated nodule, and presence of peritoneal free fluid and air ?most pronounced adjacent to the ascending and proximal transverse colon, ?scattered small foci of free peritoneal air suggestive of perforated hollow viscus. The foci of free air are most center adjacent to the proximal small bowel, ascending and transverse colon.? She is being admitted for comfort care however, Dr. Edwards will honor her wishes if she insists on having corrective surgery. He, the ED provider and myself did not feel she was aware enough at this point to make a decision and feel this should be addressed in the morning when more family members are available to her. Discharge Providers Provider Date of admission: 05/24/20 05:47 Discharge Date: 05/27/20 Primary care physician: Chester Erwin MD Consults: 05/24/20 05:54 Consult to Physician Routine Comment: Consulting Provider: Jaspal Edwards Reason for consultation: perforated bowel Has provider been notified: Yes Discharge provider: Fabiana Gonsales MD Summary Hospital Course Discharge Diagnosis: 1. Acute small-bowel obstruction with transverse colon perforation 2. 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 Dementia 4. Hypertension 5. History of TIA 6. Seizure disorder 7. Depression 8. History of cerebral aneurysm 9. Severe protein calorie malnutrition 10. Hyponatremia Hospital Course: Patient was admitted to the hospital for acute abdominal pain. CT scan of the abdomen performed revealed a small bowel obstruction with perforation of her bowel including her transverse colon. Patient was evaluated by surgery, Dr. Edwards. After review of the patient's medical record her multiple comorbidities and underlying metastatic disease it was decided that she would not be an operative tips candidate. This was discussed with the patient's surrogate decision maker, her . After much consideration they agreed to focus on comfort and the patient was made comfort care. She did receive some IV Benadryl with some confusion and obtundation associated. Once the Benadryl wore off the patient's mentation improved. She remained NPO. She did have some intermittent abdominal pain which was treated with morphine. Hospice consultation was obtained. The patient will be discharged home under the care of hospice for comfort measures. At this particular time she is complaining of feeling ?hungry. Would will attempt to provide comfort feeding for her starting with clear liquids. The patient has a Tobar catheter in the family is deciding whether to keep or removed the catheter. They will be met by hospice at home today. Patient is deemed appropriate for discharge home. Status at Discharge Cognitive/behavioral status at discharge: confused Functional status at discharge: bed bound Overall status at discharge: patient is not back to baseline Time Spent with Patient Time spent: Less than 30 minutes Exam Vital Signs (past 8 hours): Oxygen Delivery Method Room Air Oxygen Flow Rate 0 Narrative Exam Narrative: Ill-appearing cachectic female in no obvious distress Lungs: Decreased breath sounds but clear to auscultation Cardiac exam: Regular rate and rhythm normal S1-S2 Abdomen: Mildly protuberant, soft, mildly tender to palpation Extremities: No edema Objective Labs Result Diagrams: 05/24/20 01:30 05/24/20 01:30 Discharge Assessment & Plan Assessment and Plan Assessment: 1. Acute small-bowel obstruction with perforation including her small bowel and transverse colon 2. Metastatic bronchogenic carcinoma with Mets to the spine 3. Dementia 4. hypertension 5. Depression 6. Severe protein calorie malnutrition Plan of Treatment: Patient will be discharged home under the care of hospice for comfort/end of life care. Discharge Plan Discharge Plan Patient Disposition: Hospice - Home Discharge orders & Medications Prescriptions: New scopolamine base [Transderm-Scop] 1 mg over 3 days Patch 3 Day 1 patch topical Q72H 5 Days RF: 0 ondansetron HCl [Zofran] 4 mg tablet 4 mg PO Q8H PRN (Reason: nausea and vomiting) Qty: 30 RF: 0 lorazepam [Ativan] 1 mg tablet 1 mg PO TID PRN (Reason: anxiety) Qty: 14 RF: 0 morphine 20 mg/5 mL (4 mg/mL) solution 10 mg PO Q4H PRN (Reason: pain) Qty: 500 RF: 0 Continued duloxetine 30 mg capsule,delayed release(DR/EC) 30 mg PO DAILY RF: 0 lamotrigine 25 mg tablet 25 mg PO DAILY Qty: 30 RF: 0 lidocaine 5 % adhesive patch,medicated 1 patch TOP DAILY Qty: 15 RF: 0 tramadol 50 mg tablet 50 mg PO BID PRN (Reason: pain) Qty: 10 RF: 0 Discontinued hydrochlorothiazide 12.5 mg Capsule 12.5 mg PO BID RF: 0 aspirin 81 mg Tablet,Chewable 81 mg PO DAILY RF: 0 potassium chloride RF: 0 aspirin 81 mg Tablet,Delayed Release (Dr/Ec) 81 mg PO DAILY RF: 0 hydroxyzine HCl 25 mg tablet 12.5 mg PO BID RF: 0 Priority Eye Vitamin 1 tab PO DAILY RF: 0 cyclobenzaprine 5 mg tablet 5 mg PO TID PRN (Reason: muscle spasm) Qty: 14 RF: 0 Follow up/Referrals: Chester Erwin MD [Primary Care Provider] - Discharge Health Status Multidrug resistant organism: No MDRO Diet/Activity/Treatments Diet: Diet as Tolerated Visit Report/Discharge Packet Visit Report Forms: Patient Portal/API, Stroke Signs & Symptoms Discharge Data Primary Care Provider: Chester Erwni
--- NOTE | 2020-05-27 08:44 | CM.DPC ---
DCP Discharge Home with [facility] Per MD, pt medically stable to d/c home today via nonemergent BLS transport with Hospice to open pt to service today. SW called [facility] and scheduled transport for 0930 this morning and called [facility] and confirmed they plan to open the pt to service around 1100 today. SW faxed scripts, med rec, d/c summary to [facility] to review. GIGI updated dope house operator helper, RN, and MD and placed previously completed BLS form on pt chart for transport. Family aware and agreeable with plan. Plan: Patient to d/c home to [place] via [facility] at 0930 and [facility] to open pt to service at around 1100. FABIÁN Iyer
== END 2020-05-27 10:30 | disposition hospice, home (50) | DRG 393 ==
LOC: ED 04:33 → AC 05:48
PROVIDERS: Admitting Provider Nurse Practitioner Family; Emergency Provider Emergency Medicine; PCP Student in an Organized Health Care Education/Training Program; Referring Provider Emergency Medicine; Visit Provider Nurse Practitioner Family
DX: K63.1 Perforation of intestine (nontraumatic) (principal); K65.9 Peritonitis, unspecified; R40.2344 Coma scale, best motor response, flexion withdrawal, 24 hours or more after hospital admission; C34.91 Malignant neoplasm of unspecified part of right bronchus or lung; C79.51 Secondary malignant neoplasm of bone; E87.1 Hypo-osmolality and hyponatremia; R41.0 Disorientation, unspecified; R40.2134 Coma scale, eyes open, to sound, 24 hours or more after hospital admission; R40.2244 Coma scale, best verbal response, confused conversation, 24 hours or more after hospital admission; G40.909 Epilepsy, unspecified, not intractable, without status epilepticus; K21.9 Gastro-esophageal reflux disease without esophagitis; F03.90 Unspecified dementia, unspecified severity, without behavioral disturbance, psychotic disturbance, mood disturbance, and anxiety; I10 Essential (primary) hypertension; F32.9 Major depressive disorder, single episode, unspecified; Z87.891 Personal history of nicotine dependence; Z11.59 Encounter for screening for other viral diseases; Z51.5 Encounter for palliative care; Z66 Do not resuscitate
CPT/HCPCS: 36415; 70450; 71260; 74177; 80053; 82550; 82728; 83605; 83615; 83690; 83880; 84145; 84484; 85025; 85379; 85610; 87040; 87633; 87635; 93005; 96365; 96366; 96375; 99285; C9113; J1200; J1642; J1956; J2060; J2270; J2405; J7050; Q9967